=== PATIENT | female | born 1980 | race Caucasian/White ===

== ENCOUNTER → 2017-10-16 08:25 | Outpatient (CLI) | payer OTHER, SELFPAY ==
[2017-10-16 12:26] LABS: Absolute Lymphocyte Count 1.28 X10^3/ul (0.83-4.51); Absolute Neutrophil Count 2.3 X10^3/uL (2.0-7.7); Basophil# 0.01 X10^3/uL; Basophil% 0.2 % (0-1); Eosinophil# 0.09 X10^3/uL; Eosinophils% 2.2 % (0-5); Hematocrit 37.8 % (37-47); Hemoglobin 12.1 g/dl (12.0-15.0); Lymphocyte # 1.28 X10^3/ul (4.0); Lymphocyte % 31.2 % (19-41); Mean Corpuscular Volume 93.8 fL (81-99); Mean Platelet Vol. 11.2 fl (6.2-12.0); Monocyte# 0.39 X10^3/uL; Monocyte% 9.5 % (0-10); Neutrophil # 2.32 X10^3/uL (2.7-7.7); Neutrophil % 56.7 % (47-70); Platelet Count 261 K/mm3 (150-450); RBC Distribution Width CV 11.9 % (11.6-14.6); RBC Distribution Width SD 40.3 fl (35.1-43.9); Red Blood Count 4.03 M/mm3 (4.2-5.4); White Blood Count 4.1 K/mm3 (4.4-11.0)
[2017-10-16 12:32] LABS: POSITIVE COUNT NO; POSITIVE DIFFERENTIAL NO; POSITIVE MORPHOLOGY NO
[2017-10-16 12:46] LABS: AST(SGOT) 11 U/L (15-37); Alanine Aminotransfer ALT/SGPT 9 U/L (13-56); Albumin, Serum 3.5 g/dL (3.2-5.0); Alkaline Phosphatase 50 U/L (45-117); Anion Gap 6 (5-15); BUN 11 mg/dL (7-18); BUN/Creat Ratio 12.9 RATIO (10-20); Calcium,Total 8.1 mg/dL (8.5-10.1); Chloride 109 mmol/L (98-107); Cholesterol 221 mg/dL (200); Creatinine, Serum 0.86 mg/dL (0.55-1.02); EST Glomerular Filtration Rate 79 mL/min (>60); Est Glom Filt Rate - Afr Amer 95 mL/min (>60); Globulin 3.6 g/dL (2.2-4.2); Glucose 94 mg/dL (74-106); High Density Lipoprotein 56 mg/dL; Protein, Total 7.1 g/dL (6.4-8.2); Sodium Level 142 mmol/L (136-145); Thyroid Stim Hormone (TSH) 0.91 uIU/mL (0.358-3.74); Triglycerides 126 mg/dL; Very Low Density Lipoprotein 25 mg/dL (5-40)
== END ==
PROVIDERS: Family Provider Family Medicine; PCP Family Medicine; Visit Provider Family Medicine
DX: Z00.00 Encounter for general adult medical examination without abnormal findings (principal); R53.83 Other fatigue
CPT/HCPCS: 36415; 80053; 80061; 84443; 85025

== ENCOUNTER → 2018-08-06 16:10 | Outpatient (CLI) | payer OTHER, SELFPAY ==
--- NOTE | 2018-08-06 16:17 | MRI_ITS ---
STUDY: MRI LUMBAR SPINE WITHOUT CONTRAST REASON FOR EXAM: Female, 38 years old. Lower back pain TECHNIQUE: Standardized fat and water weighted pulse sequences were obtained in the sagittal and axial planes. COMPARISON: None FINDINGS: T12-L1: Normal endplates. Normal disc height, hydration and morphology. Normal bilateral facet joints. Normal central canal and bilateral lateral recesses. Normal bilateral intervertebral neural foramina. Normal lumbar lordosis. There is no substantial scoliosis. Normal conus medullaris that terminates at the L1-2: Normal endplates. Normal disc height, hydration and morphology. Normal bilateral facet joints. Normal central canal and bilateral lateral recesses. Normal bilateral intervertebral neural foramina. L2-3: Normal endplates. Normal disc height, hydration and morphology. Normal bilateral facet joints. Normal central canal and bilateral lateral recesses. Normal bilateral intervertebral neural foramina. L3-4: Normal endplates. Normal disc height, hydration and morphology. Normal bilateral facet joints. Normal central canal and bilateral lateral recesses. Normal bilateral intervertebral neural foramina. L4-5: Endplate spondylosis. Decreased disc height and small circumferential disc bulge. Degenerative changes of the bilateral facet joints. Mild narrowing of the central canal and bilateral intervertebral neural foramina. L5-S1: Endplate spondylosis. Right laminectomy Decreased disc height and small circumferential disc bulge. Degenerative changes of the bilateral facet joints. Mild narrowing of the bilateral intervertebral neural foramina. Normal visualized sacral ala. Normal visualized paraspinous soft tissue structures. MRI/Spine Lumbar (Routine) IMPRESSION: L4-5 and L5-S1 degenerative changes, as described above. Electronically Signed: Timo Reed MD at 5:20 EST Tel , Service support ,
== END ==
PROVIDERS: Family Provider Family Medicine; PCP Family Medicine; Referring Provider Anesthesiology Pain Medicine; Visit Provider Anesthesiology Pain Medicine
DX: M54.5 Low back pain (principal); M79.605 Pain in left leg
CPT/HCPCS: 72148

== ENCOUNTER → 2021-04-13 07:53 | Outpatient (CLI) | payer OTHER, SELFPAY ==
--- NOTE | 2021-04-13 08:05 | US_ITS ---
STUDY: ABDOMINAL ULTRASOUND - RIGHT UPPER QUADRANT REASON FOR VISIT: Female, 41 years old RUQ PAIN TECHNIQUE: Ultrasound evaluation of the right upper quadrant was performed with real-time and static hodges-scale imaging. TECHNICAL QUALITY: Adequate. COMPARISON: None. FINDINGS: Liver: The liver measures 13.2 cm. There is normal echogenicity of the liver. The bile ducts are within normal limits. There is hepatic color flow. The direction of portal flow is hepatopetal. There is no demonstrated mass lesion. Gallbladder: Normal distended gallbladder. The gallbladder wall measures 2.4 mm. There is a negative sonographic Dai''s sign. There is no pericholecystic fluid. There are no gallstones. Common Bile Duct (C.B.D.): The common bile duct measures 3.5 mm. Pancreas: Normal size of the head, body and tail of the pancreas. There is normal echogenicity of the pancreas. There is no demonstrated pancreatic mass or cyst. Right Kidney: Normal size of the right kidney. The right kidney measures 10.1 cm x 4.2 cm x 5.5 cm. Normal renal cortex. The right cortex measures 1.2 cm. There is no demonstrated renal mass or cyst. There is no right hydronephrosis. US/Abdomen Limited IMPRESSION: Normal right upper quadrant ultrasound examination. Electronically Signed: Alvarez Avendano MD at 14:54 EDT , Service support ,
== END ==
PROVIDERS: PCP Family Medicine; Referring Provider Family Medicine; Visit Provider Family Medicine
DX: R10.11 Right upper quadrant pain (principal)
CPT/HCPCS: 76705

== ENCOUNTER → 2021-04-30 10:00 | Outpatient (CLI) | payer OTHER, SELFPAY ==
--- NOTE | 2021-04-30 10:04 | NM_ITS ---
Nuclear medicine HIDA scan Indication: Gallbladder dysfunction COMPARISON STUDIES : NM - None. CR - Not available for review at this time. CT - Not available for review at this time. MR - Not available for review at this time. Ultrasound -- 04/13/2021 Technique: 5.5 mCi of technetium 99m labeled mebrofenin was injected intravenously followed by standard imaging. 1.4 mcg of CCK was injected intravenously for calculation of gallbladder ejection fraction. Findings: There is homogenous activity throughout the liver. Normal excretion of isotope into the proximal small bowel. Activity in the gallbladder is identified at 10 minutes. Gallbladder ejection fraction measures 74%. NM/Hepatobilliary Img w/Pharm Int IMPRESSION: Normal study. Normal gallbladder ejection fraction. Electronically Signed: Yahir Purdy MD ([place]) at 12:44 EDT , Service support ,
== END ==
PROVIDERS: PCP Family Medicine; Referring Provider Family Medicine; Visit Provider Family Medicine
DX: R10.11 Right upper quadrant pain (principal)
CPT/HCPCS: 78227; A9537; J2805

== ENCOUNTER → 2023-07-19 | Outpatient (CLI) | payer OTHER, SELFPAY | END | disposition home or self-care (01) | LOC: LABSPEC 13:36 | PROVIDERS: PCP Family Medicine; Visit Provider Family Medicine | DX: Z20.828 Contact with and (suspected) exposure to other viral communicable diseases (principal) | CPT/HCPCS: 87635; 87804 ==

== ENCOUNTER → 2024-04-04 | Outpatient (CLI) | payer BC, SELFPAY ==
[2024-04-04 12:29] LABS: Absolute Lymphocyte Count 1.22 X10^3/uL (0.83-4.51); Absolute Neutrophil Count 3.3 X10^3/uL (2.0-7.7); Basophil# 0.04 X10^3/uL; Basophil% 0.8 % (0-1); Eosinophil# 0.06 X10^3/uL; Eosinophils% 1.2 % (0-5); Hematocrit 46.1 % (37-47); Hemoglobin 14.8 g/dL (12.0-15.0); Lymphocyte # 1.22 X10^3/ul (0.83-4.51); Lymphocyte % 23.6 % (19-41); Mean Corp Hgb Conc 32.1 g/dL (32-36); Mean Corpuscular Hgb 30.3 pg (27.0-32.0); Mean Corpuscular Volume 94.5 fL (81-99); Monocyte# 0.51 X10^3/uL; Monocyte% 9.9 % (0-10); NRBC Flagged by Analyzer 0 % (0-5); Neutrophil # 3.33 X10^3/uL (2.7-7.7); Neutrophil % 64.3 % (47-70); Platelet Count 271 K/mm3 (150-450); RBC Distribution Width CV 11.9 % (11.6-14.6); RBC Distribution Width SD 41.3 fl (35.1-43.9); Red Blood Count 4.88 M/mm3 (4.2-5.4); White Blood Count 5.2 K/mm3 (4.4-11.0)
[2024-04-04 12:44] LABS: Vitamin B12 998 pg/mL (211-911); Vitamin D,25 Hydroxy 41.3 ng/mL
[2024-04-04 13:08] LABS: ALB/GLOB Ratio 1.1 RATIO (0.9-2.4); AST(SGOT) 15 U/L (15-37); Alanine Aminotransfer ALT/SGPT 13 U/L (13-56); Albumin, Serum 4.2 g/dL (3.2-5.0); Alkaline Phosphatase 52 U/L (45-117); Anion Gap 9 (5-15); BUN 11 mg/dL (7-18); Calcium,Total 9.6 mg/dL (8.5-10.1); Chloride 108 mmol/L (98-107); Cholesterol 285 mg/dL (200); EST Glomerular Filtration Rate 57 mL/min (>60); Est Glom Filt Rate - Afr Amer 69 mL/min (>60); Ferritin 57 ng/mL (8-252); Globulin 3.9 g/dL (2.2-4.2); Glucose 96 mg/dL (74-106); High Density Lipoprotein 58 mg/dL; Potassium 3.9 mmol/L (3.5-5.1); Protein, Total 8.1 g/dL (6.4-8.2); Sodium Level 139 mmol/L (136-145); T4 Free Direct 1.11 ng/dL (0.76-1.46); Thyroid Stim Hormone (TSH) 0.905 uIU/mL (0.358-3.740); Triglycerides 132 mg/dL; Very Low Density Lipoprotein 26 mg/dL (5-40)
== END | disposition home or self-care (01) ==
PROVIDERS: PCP Family Medicine; Referring Provider Family Medicine; Visit Provider Family Medicine
DX: Z00.00 Encounter for general adult medical examination without abnormal findings (principal); D64.9 Anemia, unspecified; R53.83 Other fatigue
CPT/HCPCS: 36415; 80053; 80061; 82306; 82607; 82728; 84439; 84443; 85025

== ENCOUNTER → 2024-04-25 | Outpatient (CLI) | payer BC, SELFPAY ==
--- NOTE | 2024-04-25 10:27 | BI_ITS ---
MAMMOGRAPHY - BILATERAL SCREENING REASON FOR EXAM: Female, 44 years old. Routine annual screening examination. PERTINENT HISTORY: Grandmother with breast cancer. TECHNIQUE: Digital bilateral breast claudia (3D mammographic acquisition) in the CC and MLO projections. 2-D mediolateral oblique (MLO) and craniocaudad (CC) views of both breasts were obtained. CAD: Full Field Digital Mammography with Computer Added Detection was performed. COMPARISON: Comparison is made with prior outside examination dated May 05, 2020. FINDINGS: Breast Composition: The breasts are extremely dense, which lowers the sensitivity of mammography. There are no dominant masses or suspicious calcifications. Stable small benign appearing bilateral axillary lymph nodes. No other significant abnormalities are identified. There has been no significant change since the prior study. BI/SCRN MAMM (CAD)W/CLAUDIA BILAT IMPRESSION: Stable bilateral screening mammogram. Yearly follow-up mammogram recommended. (A) ASSESSMENT CATEGORY: BIRADS Category 2: Benign. A letter regarding these results will be sent to the patient by the facility within 30 days. Approximately 10% of breast cancers are not detected by mammography. A normal mammogram should not delay biopsy of a clinically suspicious abnormality. [id number] Electronically Signed: Alvarez Avendano MD at 15:15 EDT ,
== END | disposition home or self-care (01) ==
LOC: OPBI 10:25
PROVIDERS: PCP Family Medicine; Referring Provider Family Medicine; Visit Provider Family Medicine
DX: Z12.31 Encounter for screening mammogram for malignant neoplasm of breast (principal)
CPT/HCPCS: 77063; 77067

== ENCOUNTER 2024-05-09 07:55 | Day surgery (SDC) | payer BC, SELFPAY ==
[2024-05-09] VITALS (8 sets, daily range): BP systolic 97–109; BP diastolic 78–98; PULSE 96–109; RESP 16; TEMP 36.1–37; O2SAT 99–100; BMI 24.3
--- NOTE | 2024-05-09 08:14 | PCM.HP.STD ---
[facility] - General General Date of Admission: 05/09/24 Date of Service: 05/09/24 Chief Complaint: Colon cancer screening HPI Narrative CLARIBEL WADDELL, is a 44 F who presents for colon cancer screening. She has a positive family history of cancers polyps in her mother. She is not have any abdominal pain. She denies any nausea vomiting or diarrhea. She does not take any medicines on a daily basis. Overall she is in very good health. [facility] Medical History (Updated 05/08/24 @ 14:24 by Saritha Sanz) Wears glasses Depression Anxiety Alcohol use Low iron High cholesterol Back pain Non-smoker Family history of colon cancer in mother Home Medications ?Medication ?Instructions ?Recorded ?Last Taken ?Type doxylamine succinate 25 mg tablet 25 mg PO QHS 04/11/24 Unknown History (Unisom (doxylamine)) Allergy/AdvReac Type Severity Reaction Status Date / Time No Known Allergies Allergy Verified 05/09/24 08:15 Family History (Updated 04/11/24 @ 11:11 by Belle Jacobsen) Mother Colon cancer, Onset Age: 66 Cancerous polyps removed Grandmother Breast cancer Surgical History (Updated 05/08/24 @ 14:24 by Saritha Sanz) History of discectomy Hx of hysterectomy Hx of tubal ligation S/p bilateral myringotomy with tube placement Social History (Updated 04/11/24 @ 11:11 by Belle Jacobsen) household members: spouse and children current occupational status: employed current occupation: [employer] Smoking Status: Never smoker alcohol intake: current alcohol intake frequency: holidays/special occasions only substance use type: does not use ROS Review of Systems ROS Unobtainable: other Constitutional Constitutional: Denies fatigue, fever(s), poor appetite, weight gain or weight loss ENT HEENT: Denies mouth lesions Cardiovascular Cardiovascular: Denies abdominal bloating, abdominal edema or abdominal pain Respiratory/Chest Respiratory/Chest: Denies change in mental status, change in phlegm color, chest congestion or chest tightness Gastrointestinal Gastrointestinal: Denies belching, bloating, change in bowel habits, change in stool character, chewing difficulty, coffee ground emesis, constipation, cramping, diarrhea, dyspepsia, dysphagia, early satiety, excessive flatus, fecal incontinence, heartburn, hematemesis, hematochezia, hemorrhoids, loose stools, melena, nausea, odynophagia, rectal bleeding, tenesmus, vomiting or weight changes Genitourinary Genitourinary: Denies abdominal discomfort, burning urination or itching Musculoskeletal Musculoskeletal: Reports as per HPI; Denies muscle weakness or myalgias Integumentary Integumentary: Denies jaundice Neurologic Neurologic: Denies lack of coordination or weakness Psychiatric Psychiatric: Denies confusion, depression, memory loss, mood swings, paranoia or suicidal ideation Endocrine Endocrinology: Denies systems reviewed and no addt'l complaints, except as documented Hematologic/Lymphatic Hematologic/Lymphatic: Denies anemia, easy bleeding, easy bruising or lymphadenopathy Allergic/Immunologic Allergic/Immunologic: Denies systems reviewed and no addt'l complaints, except as documented Assessment & Plan Assessment/Plan (1) Encounter for screening for malignant neoplasm of colon: PLAN: She was explained alternatives, risk, benefits include not withstanding bleeding, infection, sepsis, perforation, need for emergent surgery and . She will have an ASA of 3.
--- NOTE | 2024-05-09 08:28 | PRE.ANES_ITS ---
ASA Classification* ASA Classification ASA Classification: 2 Assessment & Plan Anesthesia* Anesthesia Assessment Anesthesia Assessment: Discussed sedation and/or anesthesia options, risks, benefits, and alternatives with patient/parents/legal guardian/POA. Questions invited. The patient/parents/legal guardian/POA seems to understand and agrees to proceed with anesthesia plan. Reviewed the physical assessment, medical history, allergy history and patient home medications list prior to surgery/procedure/anesthetic and documented any changes. Performed airway and anesthesia risk assessments. Anesthesia Type Anesthesia Type: MAC (see written pre anesthesia record for full assessment) Anesthesia Focused Assessment* Temperature: 97 F Pulse Rate: 102 Blood Pressure: 109/98 Respiratory Rate: 16 Pulse Ox: 99 Airway Assessment Mouth opens: >3 cm Mallampati Score: II Focused Labs Anesthesia Preop lab: CBC WBC 5.2 K/mm3 (4.4-11.0) 04/04/24 09:01 RBC 4.88 M/mm3 (4.2-5.4) 04/04/24 09:01 Hgb 14.8 g/dL (12.0-15.0) 04/04/24 09:01 Hct 46.1 % (37-47) 04/04/24 09:01 Plt Count 271 K/mm3 (150-450) 04/04/24 09:01 CHEMISTRY Potassium 3.9 mmol/L (3.5-5.1) 04/04/24 09:01 Sodium 139 mmol/L (136-145) 04/04/24 09:01 BUN 11 mg/dL (7-18) 04/04/24 09:01 Creatinine 1.10 mg/dL (0.55-1.02) H 04/04/24 09:01 Glucose 96 mg/dL (74-106) 04/04/24 09:01 TSH 0.905 uIU/mL (0.358-3.740) 04/04/24 09:01 COAG PT 12.0 SECONDS (11.7-14.9) 10/26/15 13:50 Urine Test Negative Negative 04/23/15 10:45 Pre-Assessment Diagnosis/Proposed Procedure Planned Operative Procedure(s): CSCOPE OA Anesthesia History Anesthesia History - e commerce developer: Anesthesia History - e commerce developer Hx Hospitalization No 05/08/24 14:20 Any Problems With Anesthesia No 05/08/24 14:20 Cholinesterase deficiency No 05/08/24 14:20 You/Your Family Experience No 05/08/24 14:20 fever (hyperthermia) with Relationship Recent Exposure to Contagious No 05/09/24 08:16 Disease Does patient have nerve No 05/08/24 14:20 stimulator Patient instructed to have device shut off --Does patient have Pacemaker No 05/09/24 08:16 or ICD? When Was Last Pacemaker Check QUESTION #4 FULL TEXT: You/Your Family Experience fever (hyperthermia) with Anesthesia Last Oral Intake Last Oral intake: Last Oral Intake NPO since 05:00 05/09/24 08:16 Meds taken in AM with sips of water? Meds patient instructed to take am of surgery PONV PONV - e commerce developer: PONV - e commerce developer Female Yes 05/08/24 14:20 HX of Motion Sickness No 05/08/24 14:20 HX of N/V After Surgery No 05/08/24 14:20 Non-Smoker Yes 05/08/24 14:20 Duration of Surgery greater No 05/08/24 14:20 than 60 minutes Number of Risk Factors 2 05/08/24 14:20 PONV Score Moderate Risk 05/08/24 14:20 Height & Weight Height & Weight: Anesthesia: Height & Weight Height 5 ft 5 in 05/09/24 08:16 Weight: 66.224 kg 05/09/24 08:16 Body Mass Index (BMI) 24.3 05/09/24 08:16 Respiratory Assessment Respiratory Assessment - e commerce developer: Respiratory Tract Infection Hx - e commerce developer Hx Respiratory Tract Infection No 05/08/24 14:20 STOP Sleep Apnea STOP Sleep Apnea - e commerce developer: STOP Sleep Apnea - e commerce developer Hx Hypertension No 05/08/24 14:20 Hx Sleep Apnea No 05/08/24 14:20 CPAP No 04/23/15 13:48 BIPAP No 04/16/15 10:06 Do you snore loudly (louder No 05/08/24 14:20 than talking or can be heard Do you often feel tired/ No 05/08/24 14:20 fatigued/ sleepy during daytime? Has anyone observed you stop No 05/08/24 14:20 breathing during sleep? STOP Results Negative 05/08/24 14:20 QUESTION #5 FULL TEXT : Do you snore loudly (louder than talking or can be heard through closed doors)? 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 Specify any problems Hx of Preganancy in last 3 No 05/08/24 14:20 Months Nurse Filling Out Transfusion DSCHRIBER 05/08/24 14:20 & Questions: Date: 05/08/24 05/08/24 14:20 Time: 14:21 05/08/24 14:20 Patient unable to answer at this time (ie. confused, unrespo /Reproduction History /Reproductive History - e commerce developer: /Reproductive Hx- e commerce developer Hx Now No 05/08/24 14:20 Gestational Age (in weeks): EDC: Hx Hx Para Hx Section SAB No 05/08/24 14:20 PFSH Medical History Wears glasses Depression Anxiety Alcohol use Low iron High cholesterol Back pain Non-smoker Family history of colon cancer in mother Home Medications ?Medication ?Instructions ?Recorded ?Last Taken ?Type doxylamine succinate 25 mg tablet 25 mg PO QHS 04/11/24 Unknown History (Unisom (doxylamine)) Allergy/AdvReac Type Severity Reaction Status Date / Time No Known Allergies Allergy Verified 05/09/24 08:15 Family History Mother Colon cancer, Onset Age: 66 Cancerous polyps removed Grandmother Breast cancer Surgical History History of discectomy Hx of hysterectomy Hx of tubal ligation S/p bilateral myringotomy with tube placement Social History household members: spouse and children current occupational status: employed current occupation: [employer] Smoking Status: Never smoker alcohol intake: current alcohol intake frequency: holidays/special occasions only substance use type: does not use Review of Systems (Anesthesia) ROS Narrative System reviewed and no additional complaints, except as documented.
--- NOTE | 2024-05-09 09:00 | COLBX_PTH ---
PATIENT: CLARIBEL WADDELL LOC: EN U#:[id number] AGE/SX: 44/F ROOM: RE05/09/[address]: Dr. Roberto Lutz DO : 1980 BED: DIS: 05/09/2024 SPEC #: [id number] RECD: 05/09/24 13:24 STATUS: JON LISA #: [id number] DANIELE: 05/09/24 09:[address]: Roberto Lutz DEPT: SURGICAL PATHOLOGY RECD BY: Althea Medley ENTERED: 05/09/24 13:53 SP TYPE: COLON BX OTHR DR: Dr. Ryland Storm DO Tissues: Cecum, NOS Procedures: Surgery Specimen Level IV HEADER OPERATION: Colonoscopy with biopsy PRE-OP DIAGNOSIS: Encounter for screening for malignant neoplasm of colon TISSUE SUBMITTED: Cecum biopsy MICROSCOPIC DIAGNOSIS Cecum, biopsy: Fragments of colonic mucosa, no pathologic diagnosis. 05/10/2024 MICROSCOPIC DESCRIPTION Slides are reviewed. GROSS DESCRIPTION Received in fixative is one container labeled with the patient's name and designated Cecum biopsy. The specimen consists of multiple irregular fragments of light jimenez soft tissue that in aggregate measure 1.0 x 0.3 x 0.1 cm. The specimen is totally submitted in one cassette. 05/09/2024 TC:4 CPT:66953
--- NOTE | 2024-05-09 09:31 | PCM.POST.ANE ---
Anesthesia: Postop Eval I Current Vital Signs Temperature: 97 F Pulse Rate: 109 Blood Pressure: 105/90 Respiratory Rate: 16 Pulse Ox: 100 Oxygen Delivery Method: Room Air Assessment Airway patent: Yes Spontaneous unlabored respirations: Yes Mental status: Asleep nausea: No Vomiting: No Anesthesia Complication: No Fluid Hydration Crystalloid volume administer (ml): 60 Total IV fluid infused: 60 Progress Note Anesthesia document: Postop Eval 1 completed: Yes
--- NOTE | 2024-05-09 10:11 | PCM.POSTANE2 ---
Anesthesia Postop Eval I Sum Postop Eval Completion status Anesthesia document: Postop Eval 1 completed: Yes Anesthesia Postop Eval I Summary Anesthesia Postop Eval I Summary: Anesthesia Postop Eval I: Assessment Summary Airway patent Yes 05/09/24 09:32 [email or web address] Spontaneous unlabored Yes 05/09/24 09:32 [email or web address] respirations Mental status Asleep 05/09/24 09:32 [email or web address] nausea No 05/09/24 09:32 [email or web address] Vomiting No 05/09/24 09:32 [email or web address] Anesthesia Postop Eval I: Fluid Summary Crystalloid volume administer 60 05/09/24 09:32 [email or web address] (ml) Colloids volume administered ( ml) Blood Product volume administered (ml) Total IV fluid infused 60 05/09/24 09:32 [email or web address] Anesthesia Postop Eval I: Summary Notes Anesthesia Complication No 05/09/24 09:32 [email or web address] Anesthesia Complication Comment: Post-operative progress note Anesthesia: Postop Eval II Evaluation Mental status: Awake Pain Level: 0 nausea: No Vomiting: No
--- NOTE | 2024-05-13 15:26 | OP.COLON_ITS ---
Patient Name: Daniella Cardona Procedure Date: 05/09/2024 8:58 AM Date of : 1980 Age: 44 Procedure: Colonoscopy Indications: Screening for colorectal malignant neoplasm Providers: Roberto Lutz DO Medicines: Monitored Anesthesia Care Patient Profile: This is a 44 year old female. Refer to note in patient chart for documentation of history and physical. Last Colonoscopy: none. The patient's first colonoscopy is today. Complications: No immediate complications. Procedure: Pre-Anesthesia Assessment: - Prior to the procedure, a History and Physical was performed, and patient medications and allergies were reviewed. The patient is competent. The risks and benefits of the procedure and the sedation options and risks were discussed with the patient. All questions were answered and informed consent was obtained. Patient identification and proposed procedure were verified by the physician in the pre-procedure area. Mental Status Examination: alert and oriented. Airway Examination: normal oropharyngeal airway and neck mobility. Respiratory Examination: clear to auscultation. CV Examination: normal. Prophylactic Antibiotics: The patient does not require prophylactic antibiotics. Prior Anticoagulants: The patient has taken no anticoagulant or antiplatelet agents. ASA Grade Assessment: II - A patient with mild systemic disease. After reviewing the risks and benefits, the patient was deemed in satisfactory condition to undergo the procedure. The anesthesia plan was to use monitored anesthesia care (MAC). Immediately prior to administration of medications, the patient was re-assessed for adequacy to receive sedatives. The heart rate, respiratory rate, oxygen saturations, blood pressure, adequacy of pulmonary ventilation, and response to care were monitored throughout the procedure. The physical status of the patient was re-assessed after the procedure. After I obtained informed consent, the scope was passed under direct vision. Throughout the procedure, the patient's blood pressure, pulse, and oxygen saturations were monitored continuously. The pediatric colonoscope was introduced through the anus and advanced to the terminal ileum. The colonoscopy was performed without difficulty. The patient tolerated the procedure well. The quality of the bowel preparation was adequate. The terminal ileum, ileocecal valve, appendiceal orifice, and rectum were photographed. Scope In: 9:12:33 AM Scope Withdrawal Time 0 hours 8 minutes 52 seconds Scope Out: 9:25:38 AM Total Procedure Duration Time 0 hours 13 minutes 5 seconds Findings: The perianal and digital rectal examinations were normal. An area of moderately congested mucosa was found in the cecum. Biopsies were taken with a cold forceps for histology. Verification of patient identification for the specimen was done. Estimated blood loss was minimal. The exam was otherwise without abnormality on direct and retroflexion views. The terminal ileum appeared normal. Impression: - Congested mucosa in the cecum. Biopsied. - The examination was otherwise normal on direct and retroflexion views. - The examined portion of the ileum was normal. Recommendation: - Discharge patient to home. - Resume previous diet. - Continue present medications. - Await pathology results. - Repeat colonoscopy in 10 years for screening purposes. Procedure Code(s): --- Professional --- 18203, Colonoscopy, flexible; with biopsy, single or multiple CPT copyright 2021 [employer]. All rights reserved. The codes documented in this report are preliminary and upon crystal lapper review may be revised to meet current compliance requirements. Roberto Lutz DO 05/09/2024 9:29:33 AM This report has been signed electronically. Number of Addenda: 0 Note Initiated On: 05/09/2024 8:58 AM
--- NOTE | 2024-05-13 15:26 | OP.CCLET_ITS ---
05/09/2024 Ryland Storm [address] [place] [address] Re : Colonoscopy procedure for Daniella Brendan Dear Dr. Storm This procedure was performed on April. My impressions and recommendations are as follows: Impressions : - Congested mucosa in the cecum. Biopsied. - The examination was otherwise normal on direct and retroflexion views. - The examined portion of the ileum was normal. Recommendations : - Discharge patient to home. - Resume previous diet. - Continue present medications. - Await pathology results. - Repeat colonoscopy in 10 years for screening purposes. My findings are described in the full procedure note, which is enclosed. If I can be of further assistance, please feel free to contact me at . Sincerely, Roberto Lutz, 05/09/2024 9:29:33 AM This report has been signed electronically.
== END 2024-05-09 10:23 | disposition home or self-care (01) ==
LOC: EN 07:57 → AC 07:58
PROVIDERS: PCP Family Medicine; Referring Provider Family Medicine; Visit Provider Internal Medicine Gastroenterology
PROC: 0DJD8ZZ Inspection of Lower Intestinal Tract, Via Natural or Artificial Opening Endoscopic (ICD-10-PCS; CPT 45378; principal; 2024-05-09 08:55)
DX: Z12.11 Encounter for screening for malignant neoplasm of colon (principal); K63.89 Other specified diseases of intestine; Z80.0 Family history of malignant neoplasm of digestive organs
CPT/HCPCS: 45380; 88305; A4216; J2405

== ENCOUNTER → 2025-04-08 | Outpatient (CLI) | payer BC, SELFPAY ==
[2025-04-08 12:37] LABS: Hematocrit 39.5 % (37-47); Hemoglobin 13.1 g/dL (12.0-15.0); Immature Granulocytes Count 0.020 X10^3/uL (0.0-0.0); Mean Corp Hgb Conc 33.2 g/dL (32-36); Mean Corpuscular Volume 95.0 fL (81-99); Mean Platelet Vol. 10.6 fl (6.2-12.0); NRBC Flagged by Analyzer 0 % (0-5); Platelet Count 289 K/mm3 (150-450); RBC Distribution Width CV 12.8 % (11.6-14.6); RBC Distribution Width SD 44.8 fl (35.1-43.9); Red Blood Count 4.16 M/mm3 (4.2-5.4); White Blood Count 6.1 K/mm3 (4.4-11.0)
[2025-04-08 13:11] LABS: Cholesterol 236 mg/dL (<=200); Low Density Lipoprotein Calc. 122 mg/dL; Triglycerides 176 mg/dL; Very Low Density Lipoprotein 35 mg/dL (5-40); cholesterol:hdl ratio screen 3.01
[2025-04-08 13:13] LABS: AST(SGOT) 19 U/L (<=31); Alanine Aminotransfer ALT/SGPT < 5 U/L (<=34); Albumin, Serum 4.3 g/dL (3.5-5.0); Alkaline Phosphatase 50 U/L (35-104); Anion Gap 12 (5-15); BUN 9 mg/dL (4-19); BUN/Creat Ratio 10.3 RATIO (10-20); Calcium,Total 9.4 mg/dL (7.6-11.0); Carbon Dioxide 25.8 mmol/L (21.0-32.0); Chloride 101 mmol/L (98-108); Globulin 2.7 g/dL (2.2-4.2); Glucose 104 mg/dL (70-99); Potassium 4.4 mmol/L (3.3-5.1)
[2025-04-09 04:07] LABS: PROGESTERONE 10.9 ng/mL (.)
== END | disposition home or self-care (01) ==
LOC: BFHLAB 09:06
PROVIDERS: PCP Family Medicine; Visit Provider Family Medicine
DX: Z00.00 Encounter for general adult medical examination without abnormal findings (principal); R61 Generalized hyperhidrosis
CPT/HCPCS: 36415; 80053; 80061; 82670; 84144; 84439; 84443; 85025

== ENCOUNTER 2025-04-25 04:06 | Observation (INO) | payer BC, SELFPAY ==
[2025-04-25] VITALS (16 sets, daily range): BP systolic 110–153; BP diastolic 62–96; PULSE 65–122; RESP 14–18; TEMP 36.4–36.7; O2SAT 90–100; BMI 25.9
--- OUTSIDE RECORDS SUMMARY | 2025-04-25 04:29 | XMS RPT_ITS | CCD ---
Author Organization [facility] Care Team Providers Care Mathematics Instructor Name Role Phone Vijay Queen DO Unavailable Ryland Storm Primary Care Unavailable Ryland Storm Attending Unavailable Ryland Storm Referring Unavailable Ryland Storm Primary Care Unavailable Ryland Storm Attending Unavailable Ryland Storm Referring Unavailable Ryland Storm Primary Care Unavailable Ryland Storm Attending Unavailable Ryland Storm Primary Care Unavailable FriendRoberto Attending Unavailable Ryland Storm Referring Unavailable Ryland Storm Primary Care Unavailable FriendRoberto Consulting Unavailable FriendRoberto Attending Unavailable Ryland Storm Referring Unavailable Medications Completed/Discontinued Medications Medication Drug Class(es) Dates Sig (Normalized) Sig (Original) gabapentin 300 mg oral capsule (1 source) Anti-epileptic Agent Start: 09-05-2018 GABAPENTIN 300 MG CAPS 1 capsule 3 times daily GABAPENTIN [id number] Jennifer Hancock LPN terbinafine 250 mg oral tablet (1 source) Allylamine Antifungal Start: 09-05-2018 TERBINAFINE HCL 250 MG TABS 1 tablet daily TERBINAFINE HCL [id number] Jennifer Hancock LPN Problems Active Problems Problem Classification Problem Date Documented Da te Episodic/Chronic Other screening for suspected conditions (not mental disorders or infectious disease) (4 sources) Encounter for other screening for malignant neoplasm of breast; Translations: [Encounter for screening for malignant neoplasm of colon] Onset: 05-14-2024 Episodic Spondylosis; intervertebral disc disorders; other back problems (2 sources) Low back pain; Translations: [Radiculopathy, lumbar region] Onset: 09-06-2018 09-06-2018 Episodic Past or Other Problems Problem Classification Problem Date Documented Da te Episodic/Chronic Unclassified (1 source) Problem Results Test Name Value Interpretation Reference Range Facility PROGESTERONE 4317on 04-09-20 25 PROGESTERONE 10.9 ng/mL Normal . [facility] Comment on above: Order Comment: N Result Comment: Foll icular phase 0.1 - 0.9 Luteal phase 1.8 - 23.9 Ovulation phase 0.1 - 12.0 First trimester 11.0 - 44.3 Second trimester 25.4 - 83.3 Third trimester 58.7 - 214.0 Postmenopausal 0.0 - 0.1 Performed at: [address] [id number] Accounting Machine Servicer: Randall Walters PhD, Phone: [phone] Performed By: #### L 506.0400, L801.2600, L100.0100, L500.4100, L3300.1750, L500.4050, L501.9520 ####[facility] [address] [place], [place], [phone](005) CBC W/Diff, Automatedon 03-24 Absolute Lymph 1.79 X10 3/uL Normal 0.83-4.51 [facility] Comment on above: Performed By: #### L 506.0400, L801.2600, L100.0100, L500.4100, L3300.1750, L500.4050, L501.9520 #### [facility] [address] [place], [place], [phone] ([address] Absolute Neut 3.5 X10 3/uL Normal 2.0-7.7 [facility] Comment on above: Performed By: #### L 506.0400, L801.2600, L100.0100, L500.4100, L3300.1750, L500.4050, L501.9520 #### [facility] [address] [place], [address] Basophils/100 WBC (Bld) 0.8 % Normal 0-1 [facility] Comment on above: Performed By: #### L 506.0400, L801.2600, L100.0100, L500.4100, L3300.1750, L500.4050, L501.9520 #### [facility] [address] [place], [address] Eosinophils/100 WBC (Bld) 1.5 % Normal 0-5 [facility] Comment on above: Performed By: #### L 506.0400, L801.2600, L100.0100, L500.4100, L3300.1750, L500.4050, L501.9520 #### [facility] [address] [place], [address] Erythrocyte distribution width (RBC) [Ratio] 12.8 % Normal 11.6-14.6 [facility] Comment on above: Performed By: #### L 506.0400, L801.2600, L100.0100, L500.4100, L3300.1750, L500.4050, L501.9520 #### [facility] [address] [place], [address] Hematocrit (Bld) [Volume fraction] 39.5 % Normal 37-47 [facility] Comment on above: Performed By: #### L 506.0400, L801.2600, L100.0100, L500.4100, L3300.1750, L500.4050, L501.9520 #### [facility] [address] [place], [address] Hemoglobin (Bld) [Mass/Vol] 13.1 g/dL Normal 12.0-15.0 [facility] Comment on above: Performed By: #### L 506.0400, L801.2600, L100.0100, L500.4100, L3300.1750, L500.4050, L501.9520 #### [facility] [address] [place], [address] IG% 0.300 Normal 0.0-0.9 [facility] Comment on above: Result Comment: IG% - Immature Granulocytes (promyelocytes, myelocytes and metamyelocytes) > 1% indicates that a LEFT SHIFT is Present. Performed By: #### L 506.0400, L801.2600, L100.0100, L500.4100, L3300.1750, L500.4050, L501.9520 #### [facility] [address] [place], [address] Lymphocytes/100 WBC (Bld) 29.6 % Normal 19-41 [facility] Comment on above: Performed By: #### L 506.0400, L801.2600, L100.0100, L500.4100, L3300.1750, L500.4050, L501.9520 #### [facility] [address] [place], [address] MCH (RBC) [Entitic mass] 31.5 pg Normal 27.0-32.0 [facility] Comment on above: Performed By: #### L 506.0400, L801.2600, L100.0100, L500.4100, L3300.1750, L500.4050, L501.9520 #### [facility] [address] [place], [address] MCHC (RBC) [Mass/Vol] 33.2 g/dL Normal 32-36 [facility] Comment on above: Performed By: #### L 506.0400, L801.2600, L100.0100, L500.4100, L3300.1750, L500.4050, L501.9520 #### [facility] [address] [place], [address] MCV (RBC) [Entitic vol] 95.0 fL Normal 81-99 [facility] Comment on above: Performed By: #### L 506.0400, L801.2600, L100.0100, L500.4100, L3300.1750, L500.4050, L501.9520 #### [facility] [address] [place], [address] Monocytes/100 WBC (Bld) 10.1 % High 0-10 [facility] Comment on above: Performed By: #### L 506.0400, L801.2600, L100.0100, L500.4100, L3300.1750, L500.4050, L501.9520 #### [facility] [address] [place], [address] Neutrophils/100 WBC (Bld) 57.7 % Normal 47-70 [facility] Comment on above: Performed By: #### L 506.0400, L801.2600, L100.0100, L500.4100, L3300.1750, L500.4050, L501.9520 #### [facility] [address] [place], [address] Nucleated RBC (Bld) [#/Vol] 0 10*3/uL Normal 0-5 [facility] Comment on above: Performed By: #### L 506.0400, L801.2600, L100.0100, L500.4100, L3300.1750, L500.4050, L501.9520 #### [facility] [address] [place], [address] Platelet mean volume (Bld) [Entitic vol] 10.6 fL Normal 6.2-12.0 [facility] Comment on above: Performed By: #### L 506.0400, L801.2600, L100.0100, L500.4100, L3300.1750, L500.4050, L501.9520 #### [facility] [address] [place], [address] Platelets (Bld) [#/Vol] 289 10*3/uL Normal 150-450 [facility] Comment on above: Performed By: #### L 506.0400, L801.2600, L100.0100, L500.4100, L3300.1750, L500.4050, L501.9520 #### [facility] [address] [place], [address] RBC (Bld) [#/Vol] 4.16 10*6/uL Low 4.2-5.4 [facility] Comment on above: Performed By: #### L 506.0400, L801.2600, L100.0100, L500.4100, L3300.1750, L500.4050, L501.9520 #### [facility] [address] [place], [address] RDW SD 44.8 fl High 35.1-43.9 [facility] Comment on above: Performed By: #### L 506.0400, L801.2600, L100.0100, L500.4100, L3300.1750, L500.4050, L501.9520 #### [facility] [address] [place], [address] WBC (Bld) [#/Vol] 6.1 10*3/uL Normal 4.4-11.0 [facility] Comment on above: Performed By: #### L 506.0400, L801.2600, L100.0100, L500.4100, L3300.1750, L500.4050, L501.9520 #### [facility] [address] [place], [address] Comprehensive Metabolic Prof [facility] 04-08-2025 Albumin [Mass/Vol] 4.3 g/dL Normal 3.5-5.0 [facility] Comment on above: Performed By: #### L 506.0400, L801.2600, L100.0100, L500.4100, L3300.1750, L500.4050, L501.9520 #### [facility] [address] [place], [address] Albumin/Globulin [Mass ratio] 1.6 {ratio} Normal 0.9-2.4 [facility] Comment on above: Performed By: #### L 506.0400, L801.2600, L100.0100, L500.4100, L3300.1750, L500.4050, L501.9520 #### [facility] [address] [place], [address] ALK PHOS 50 U/L Normal 35-104 [facility] Comment on above: Performed By: #### L 506.0400, L801.2600, L100.0100, L500.4100, L3300.1750, L500.4050, L501.9520 #### [facility] [address] [place], [address] ALT [Catalytic activity/Vol] U/L Normal <=34 [facility] Comment on above: Performed By: #### L 506.0400, L801.2600, L100.0100, L500.4100, L3300.1750, L500.4050, L501.9520 #### [facility] [address] [place], [address] AST [Catalytic activity/Vol] 19 U/L Normal <=31 [facility] Comment on above: Performed By: #### L 506.0400, L801.2600, L100.0100, L500.4100, L3300.1750, L500.4050, L501.9520 #### [facility] [address] [place], [address] Bilirubin [Mass/Vol] 0.25 mg/dL Normal 0.00-1.30 [facility] Comment on above: Performed By: #### L 506.0400, L801.2600, L100.0100, L500.4100, L3300.1750, L500.4050, L501.9520 #### [facility] [address] [place], [address] BUN/CRE 10.3 RATIO Normal 10-20 [facility] Comment on above: Performed By: #### L 506.0400, L801.2600, L100.0100, L500.4100, L3300.1750, L500.4050, L501.9520 #### [facility] [address] [place], [address] Calcium [Mass/Vol] 9.4 mg/dL Normal 7.6-11.0 [facility] Comment on above: Performed By: #### L 506.0400, L801.2600, L100.0100, L500.4100, L3300.1750, L500.4050, L501.9520 #### [facility] [address] [place], [address] Chloride [Moles/Vol] 101 mmol/L Normal 98-108 [facility] Comment on above: Performed By: #### L 506.0400, L801.2600, L100.0100, L500.4100, L3300.1750, L500.4050, L501.9520 #### [facility] [address] [place], [address] CO2 [Moles/Vol] 25.8 mmol/L Normal 21.0-32.0 [facility] Comment on above: Performed By: #### L 506.0400, L801.2600, L100.0100, L500.4100, L3300.1750, L500.4050, L501.9520 #### [facility] [address] [place], [address] Creatinine [Mass/Vol] 0.89 mg/dL Normal 0.70-1.20 [facility] Comment on above: Performed By: #### L 506.0400, L801.2600, L100.0100, L500.4100, L3300.1750, L500.4050, L501.9520 #### [facility] [address] [place], [address] GAP 12 Normal 5-15 [facility] Comment on above: Performed By: #### L 506.0400, L801.2600, L100.0100, L500.4100, L3300.1750, L500.4050, L501.9520 #### [facility] [address] [place], [address] GFR/1.73 sq M.predicted among non-blacks MDRD (S/P/Bld) [Vol rate/Area] 81 mL/min/{1.73_m2} Normal >60 [facility] Comment on above: Result Comment: mL/m in/1.73m2 CKD-EPI Creatinine Equation (2020) Performed By: #### L 506.0400, L801.2600, L100.0100, L500.4100, L3300.1750, L500.4050, L501.9520 #### [facility] [address] [place], [address] Globulin (S) [Mass/Vol] 2.7 g/dL Normal 2.2-4.2 [facility] Comment on above: Performed By: #### L 506.0400, L801.2600, L100.0100, L500.4100, L3300.1750, L500.4050, L501.9520 #### [facility] [address] [place], [address] Glucose [Mass/Vol] 104 mg/dL High 70-99 [facility] Comment on above: Performed By: #### L 506.0400, L801.2600, L100.0100, L500.4100, L3300.1750, L500.4050, L501.9520 #### [facility] [address] [place], [address] Potassium [Moles/Vol] 4.4 mmol/L Normal 3.3-5.1 [facility] Comment on above: Performed By: #### L 506.0400, L801.2600, L100.0100, L500.4100, L3300.1750, L500.4050, L501.9520 #### [facility] [address] [place], [address] Sodium [Moles/Vol] 139 mmol/L Normal 133-145 [facility] Comment on above: Performed By: #### L 506.0400, L801.2600, L100.0100, L500.4100, L3300.1750, L500.4050, L501.9520 #### [facility] [address] [place], [address] T PROT 7.0 g/dL Normal 5.9-8.4 [facility] Comment on above: Performed By: #### L 506.0400, L801.2600, L100.0100, L500.4100, L3300.1750, L500.4050, L501.9520 #### [facility] [address] [place], [address] Urea nitrogen [Mass/Vol] 9 mg/dL Normal 4-19 [facility] Comment on above: Performed By: #### L 506.0400, L801.2600, L100.0100, L500.4100, L3300.1750, L500.4050, L501.9520 #### [facility] [address] [place], [address] Estradiolon 04-08-2025 ESTRADIOL 146.0 pg/mL Normal [facility] Comment on above: Result Comment: FEMA LES ADULT FEMALE: Premenopausal: 15-350 pg/mL(E2 levels vary widely through the menstrual cycle) Postmenopausal: <10 pg/mL KYLER STAGES MEAN AGE REFERENCE RANGES Stage I(>14 days and prepubertal) 7.1 years Undetectable-20 pg/mLL Stage II 10.5 years Undetectable-24 pg/mL Stage III 11.6 years Undetectable-60 pg/mL Stage IV 12.3 years 15-85 pg/mL Stage V 14.5 years 15-350 pg/mL Puberty onset (transition from Kyler stage I to Kyler stage II) occurs for girls at a median age of 10.5 (/- 2) years. There is evidence that it may occur up to 1 year earlier in obese girls and in girls. Progression through Kyler stages is variable. Kyler stage V (adult) should be reached by age 18. Performed By: #### L 506.0400, L801.2600, L100.0100, L500.4100, L3300.1750, L500.4050, L501.9520 #### [facility] [address] [facility] [place], [place], [id number] Lipid Profileon 04-08-2025 CHOL:HDL 3.01 Normal [facility] Comment on above: Performed By: #### L 506.0400, L801.2600, L100.0100, L500.4100, L3300.1750, L500.4050, L501.9520 #### [facility] [address] [facility] [place], [place], [id number] Cholesterol [Mass/Vol] 236 mg/dL High <=200 [facility] Comment on above: Result Comment: Chol esterol level, Desirable <200 mg/dL Borderline high cholesterol 200-239 mg/dL High cholesterol >=240 mg/dL Recommendations of the NCEP Adult Treatment Panel for the following risk-cutoff thresholds for the [place] population. Performed By: #### L 506.0400, L801.2600, L100.0100, L500.4100, L3300.1750, L500.4050, L501.9520 #### [facility] [address] [place], [address] Cholesterol in HDL [Mass/Vol] 79 mg/dL Normal [facility] Comment on above: Result Comment: Jennifer onal Cholesterol Education Program (NCEP) guidelines: <40 mg/dL: Low HDL-cholesterol (major risk factor for CHD) >= 60 mg/dL: High HDL-cholesterol (negative risk factor for CHD) HDL-cholesterol is affected by a number of factors, e.g. smoking, exercise, hormones, sex and age. Performed By: #### L 506.0400, L801.2600, L100.0100, L500.4100, L3300.1750, L500.4050, L501.9520 #### [facility] [address] [place], [address] Cholesterol in LDL [Mass/Vol] 122 mg/dL Normal [facility] Comment on above: Result Comment: Bord nwpqbu=694-494 mg/dL Higher Cmpu=704 mg/dL or greater Friedwald Equation for LDL-C Performed By: #### L 506.0400, L801.2600, L100.0100, L500.4100, L3300.1750, L500.4050, L501.9520 #### [facility] [address] [place], [address] Cholesterol in VLDL [Mass/Vol] 35 mg/dL Normal 5-40 [facility] Comment on above: Performed By: #### L 506.0400, L801.2600, L100.0100, L500.4100, L3300.1750, L500.4050, L501.9520 #### [facility] [address] [place], [address] Triglyceride [Mass/Vol] 176 mg/dL Normal [facility] Comment on above: Result Comment: The drugs N-Acetylcysteine and Metamizole may falsely depress this assay. Normal range: <150 mg/dL Borderline High: 150-199 mg/dL High: 200-499 mg/dL Very High: >500 mg/dL Performed By: #### L 506.0400, L801.2600, L100.0100, L500.4100, L3300.1750, L500.4050, L501.9520 #### [facility] [address] [place], [address] T4 Free Directon 04-08-2025 T4 FREE DIRECT 1.00 ng/dL Normal 0.76-1.46 [facility] Comment on above: Order Comment: N Performed By: #### L 506.0400, L801.2600, L100.0100, L500.4100, L3300.1750, L500.4050, L501.9520 #### [facility] [address] [place], [address] Thyroid Stim Hormone (TSH)on 04-08-2025 TSH 1.360 uIU/mL Normal 0.300-4.200 [facility] Comment on above: Performed By: #### L 506.0400, L801.2600, L100.0100, L500.4100, L3300.1750, L500.4050, L501.9520 #### [facility] [address] [place], [address] Colonoscopy Reporton Colonoscopy Report [facility] Medical Records Department [facility] [place] [address] Colonoscopy Report MR#: [id number] Acct: [id number] Name: CLARIBEL WADDELL ANASTASIA Rep #: [id number] : 1980 44 From: Roberto Lutz DO PCP: Dr. Ryland Storm, Status:[facility] Patient Name: Claribel Waddell Procedure Date: 05/09/2024 8:58 AM Date of : 1980 Age: 44 Procedure: Colonoscopy Indications: Screening for colorectal malignant neoplasm Providers: Roberto Lutz DO Medicines: Monitored Anesthesia Care Patient Profile: This is a 44 year old female. Refer to note in patient chart for documentation of history and physical. Last Colonoscopy: none. The patient's first colonoscopy is today. Complications: No immediate complications. Procedure: Pre-Anesthesia Assessment: - Prior to the procedure, a History and Physical was performed, and patient medications and allergies were reviewed. The patient is competent. The risks and benefits of the procedure and the sedation options and risks were discussed with the patient. All questions were answered and informed consent was obtained. Patient identification and proposed procedure were verified by the physician in the pre-procedure area. Mental Status Examination: alert and oriented. Airway Examination: normal oropharyngeal airway and neck mobility. Respiratory Examination: clear to auscultation. CV Examination: normal. Prophylactic Antibiotics: The patient does not require prophylactic antibiotics. Prior Anticoagulants: The patient has taken no anticoagulant or antiplatelet agents. ASA Grade Assessment: II - A patient with mild systemic disease. After reviewing the risks and benefits, the patient was deemed in satisfactory condition to undergo the procedure. The anesthesia plan was to use monitored anesthesia care (MAC). Immediately prior to administration of medications, the patient was re-assessed for adequacy to receive sedatives. The heart rate, respiratory rate, oxygen saturations, blood pressure, adequacy of pulmonary ventilation, and response to care were monitored throughout the procedure. The physical status of the patient was re-assessed after the procedure. After I obtained informed consent, the scope was passed under direct vision. Throughout the procedure, the patient's blood pressure, pulse, and oxygen saturations were monitored continuously. The pediatric colonoscope was introduced through the anus and advanced to the terminal ileum. The colonoscopy was performed without difficulty. The patient tolerated the procedure well. The quality of the bowel preparation was adequate. The terminal ileum, ileocecal valve, appendiceal orifice, and rectum were photographed. Scope In: 9:12:33 AM Scope Withdrawal Time 0 hours 8 minutes 52 seconds Scope Out: 9:25:38 AM Total Procedure Duration Time 0 hours 13 minutes 5 seconds Findings: The perianal and digital rectal examinations were normal. An area of moderately congested mucosa was found in the cecum. Biopsies were taken with a cold forceps for histology. Verification of patient identification for the specimen was done. Estimated blood loss was minimal. The exam was otherwise without abnormality on direct and retroflexion views. The terminal ileum appeared normal. Impression: - Congested mucosa in the cecum. Biopsied. - The examination was otherwise normal on direct and retroflexion views. - The examined portion of the ileum was normal. Recommendation: - Discharge patient to home. - Resume previous diet. - Continue present medications. - Await pathology results. - Repeat colonoscopy in 10 years for screening purposes. Procedure Code(s): --- Professional --- 47107, Colonoscopy, flexible; with biopsy, single or multiple CPT copyright 2021 [employer]. All rights reserved. The codes documented in this report are preliminary and upon braille coder review may be revised to meet current compliance requirements. Roberto Lutz DO 05/09/2024 9:29:33 AM This report has been signed electronically. Number of Addenda: 0 Note Initiated On: 05/09/2024 8:58 AM 05/09/24928 Date Roberto Lutz DO Cosigner Signature: Date (if indicated) CC: Dr. Ryland Storm DO; Roberto Lutz DO Date Dictated: 05/09/24857 Date Transcribed: Supervisor Beam Department: JASVIR Signed Normal [facility] MR/POSTOP.Nickolas 05-09-2024 MR/POSTOP.[facility] Medical Records Department [address] [place] [address] Anesthesia Postop Eval I 05/09/24930 MR#: [id number] Acct: [id number] Name: CLARIBEL WADDELL ANASTASIA Rep #: [id number] : 1980 44 From: Shayne Palma PCP: Dr. Ryland Storm DO Status:REG SDC Y Race: C Location: [place] [address] Anesthesia: Postop Eval I Current Vital Signs Temperature: 97 F Pulse Rate: 109 Blood Pressure: 105/90 Respiratory Rate: 16 Pulse Ox: 100 Oxygen Delivery Method: Room Air Assessment Airway patent: Yes Spontaneous unlabored respirations: Yes Mental status: Asleep nausea: No Vomiting: No Anesthesia Complication: No Fluid Hydration Crystalloid volume administer (ml): 60 Total IV fluid infused: 60 Progress Note Anesthesia document: Postop Eval 1 completed: Yes 05/09/24 0932 Date Shayne Odom Signature: Date CC: Signed Normal [facility] [id number] 05-09-2024 [facility] Medical Records Department [address] [place] [address] Anesthesia Postop Eval II 05/09/24 1011 MR#: [id number] Acct: [id number] Name: CLARIBEL WADDELL ANASTASIA Rep #: [id number] : 1980 44 From: Anil Bustamante MD PCP: Dr. Ryland Storm, DO Status:REG SDC Y Race: C Location: [place] [address] Anesthesia Postop Eval I Sum Postop Eval Completion status Anesthesia document: Postop Eval 1 completed: Yes Anesthesia Postop Eval I Summary Anesthesia Postop Eval I Summary: Anesthesia Postop Eval I: Assessment Summary Airway patent Yes 05/09/24 09:32 [email or web address] Spontaneous unlabored Yes 05/09/24 09:32 [email or web address] respirations Mental status Asleep 05/09/24 09:32 [email or web address] nausea No 05/09/24 09:32 [email or web address] Vomiting No 05/09/24 09:32 [email or web address] Anesthesia Postop Eval I: Fluid Summary Crystalloid volume administer 60 05/09/24 09:32 [email or web address] (ml) Colloids volume administered ( ml) Blood Product volume administered (ml) Total IV fluid infused 60 05/09/24 09:32 [email or web address] Anesthesia Postop Eval I: Summary Notes Anesthesia Complication No 05/09/24 09:32 [email or web address] Anesthesia Complication Comment: Post-operative progress note Anesthesia: Postop Eval II Evaluation Mental status: Awake Pain Level: 0 nausea: No Vomiting: No 05/09/24 1011 Date Anil Odom Signature: Date CC: Signed [facility] [facility] Surgery Specimen Level Jose 05-09-2024 Surgery Specimen Level IV Patient Age/Sex Location Account Attending Physician CLARIBEL WADDELL 44/F EN [id number] Roberto Lutz, DO Specimen: [id number] Received: 05/09/24-1323 Status: JON Julian Num: [id number] Spec Type: COLON BX Subm Dr: Roberto Lutz DO HEADER OPERATION: Colonoscopy with biopsy PRE-OP DIAGNOSIS: Encounter for screening for malignant neoplasm of colon TISSUE SUBMITTED: Cecum biopsy MICROSCOPIC DIAGNOSIS Cecum, biopsy: Fragments of colonic mucosa, no pathologic diagnosis. 05/10/2024 MICROSCOPIC DESCRIPTION Slides are reviewed. GROSS DESCRIPTION Received in fixative is one container labeled with the patient's name and designated Cecum biopsy. The specimen consists of multiple irregular fragments of light jimenez soft tissue that in aggregate measure 1.0 x 0.3 x 0.1 cm. The specimen is totally submitted in one cassette. 05/09/2024 TC:4 CPT:93715 Patient Age/Sex Location Account Attending Physician CLARIBEL WADDELL 44/F EN [id number] Roberto Lutz DO Signed (signatur e on file) Dr. Bassem Willard MD 05/10/24 1231 Normal [facility] Comment on above: Performed By: #### P SUIV ####[facility] [address] [place], [place], [address] SCRN MAMM (CAD)W/CLAUDIA BILATo n 04-25-2024 SCRN MAMM (CAD)W/CLAUDIA BILAT [facility] [address], [place] [address] SCRN MAMM (CAD)W/CLAUDIA BILAT MR#: [id number] Acct: [id number] Name: CLARIBEL WADDELL Rep #: [id number] : 1980 F 44 From: Alvarez sharp MD PCP: Dr. Ryland Storm DO Status: REG [facility] Study: SCRN MAMM (CAD)W/CLAUDIA BILAT Date of Exam: 10/14 Exam# [id number] Ordering Dr: Ryland Storm DO -[id number] MAMMOGRAPHY - BILATERAL SCREENING REASON FOR EXAM: Female, 44 years old. Routine annual screening examination. PERTINENT HISTORY: Grandmother with breast cancer. TECHNIQUE: Digital bilateral breast claudia (3D mammographic acquisition) in the CC and MLO projections. 2-D mediolateral oblique (MLO) and craniocaudad (CC) views of both breasts were obtained. CAD: Full Field Digital Mammography with Computer Added Detection was performed. COMPARISON: Comparison is made with prior outside examination dated May 05, 2020. FINDINGS: Breast Composition: The breasts are extremely dense, which lowers the sensitivity of mammography. There are no dominant masses or suspicious calcifications. Stable small benign appearing bilateral axillary lymph nodes. No other significant abnormalities are identified. There has been no significant change since the prior study. BI/SCRN MAMM (CAD)W/CLAUDIA BILAT IMPRESSION: Stable bilateral screening mammogram. Yearly follow-up mammogram recommended. (A) ASSESSMENT CATEGORY: BIRADS Category 2: Benign. A letter regarding these results will be sent to the patient by the facility within 30 days. Approximately 10% of breast cancers are not detected by mammography. A normal mammogram should not delay biopsy of a clinically suspicious abnormality. [id number] Electronically Signed: Alvarez Avendano MD at 15:15 EDT , CC: Dr. Ryland Storm, DO Supervisor Beam Department: Signed Normal [facility] Clinical Summary: HMSPatient IDon 09-06-2018 OOP [place] [facility] [facility] Work Phone: Clinical Summary: Scanned RO S Summaryon 09-06-2018 endocrine ROS Martinez Trenti vead [facility] Work Phone: genitourinary review of systems, E&M Denvirgen [facility] Work Phone: Lymphocytes #/vol (Bld) Denvirgen [facility] Work Phone: Review of Systems Neurologic comment Numbness,Tingling [facility] Work Phone: ROS cardiovascular E&M Denies [facility] Work Phone: ROS ENT E&M Denies [facility] Work Phone: ROS gastrointestinal E&M Denies [facility] Work Phone: ROS general E&M Denies [facility] Work Phone: ROS Musculoskeletal comments Pain [facility] Work Phone: ROS musculoskeletal E&M Complains [facility] Work Phone: ROS neurological E&M Complains [facility] Work Phone: ROS psychiatric E&M Denies C[facility] Work Phone: ROS pulmonary E&M Denies [facility] Work Phone: ROS skin E&M Denies [facility] Work Phone: Office Visit: New - 1st visi t with practice, Rm: 40on 09-06-2018 NEGATED: Highlighted rowMRI (magnetic resonance imaging) history of the lumbar on 08/06/2018 at [facility] Work Phone: NEGATED: Highlighted rowProtein mass conc Done [facility] Work Phone: Clinical Lists Update: Prelo ad Extendedon 09-05-2018 Tobacco smoking status NHIS Tobacco smoking status NHIS [facility] Work Phone: Clinical Summary: Data Submi tted by Patient in [place] 09-05-2018 #DEP CHLDRN No Crystal [facility] Work Phone: 3+ETOHDAILY less than 1 drink per day [facility] Work Phone: ASTHEHSZHOUS 2 floors [facility] Work Phone: DEP ALG LIST I don't have any drug allergies.,I don't have any food allergies.,I don't have any environmental allergies. 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 [facility] Work Phone: DEP ETOH USE Yes [facility] Work Phone: DEP EXERCISE No [facility] Work Phone: DEP MED LIST Terbinafine 250 mg Tab, 1 times per day,Gabapentin 300 mg Cap, 3 times per day [facility] Work Phone: DEP PMH Depression [facility] Work Phone: DEP SH CSMO never smoker [facility] Work Phone: DEP SH MAST [facility] Work Phone: DEP SH OCCUP RN [facility] Work Phone: DEP SURGERY Hysterectomy, Lumbar spine discectomy [facility] Work Phone: DEPFHMATUNKN My mother's health history is unknown [facility] Work Phone: ETOHPERFRM wine [facility] Work Phone: FATHER A/D Alive [facility] Work Phone: MOTHER A/D Alive [facility] Work Phone: RLATNSHPINFR Self [facility] Work Phone: SWHOUTYPE house [facility] Work Phone: Vital Signs Date Time Vital Sign Value Performing Clinician Facility NEGATED: Highlighted [id number] 14:22-0500 BMI (Body Mass Index) 25.89 kg/m2 Sophie Winklestine BRICK MASON [facility] Work Phone: NEGATED: Highlighted [id number] 14:22-0500 BP Diastolic 80 mm[Hg] Sophie Winklestine BRICK MASON [facility] Work Phone: NEGATED: Highlighted [id number] 14:22-0500 BP Systolic 121 mm[Hg] Sophie Winklestine BRICK MASON [facility] Work Phone: NEGATED: Highlighted [id number] 14:22-0500 Height 165.1 cm Sophie Winklestine BRICK MASON [facility] Work Phone: NEGATED: Highlighted [id number] 14:22-0500 Height 165 cm Sophie Winklestine BRICK MASON [facility] Work Phone: NEGATED: Highlighted [id number] 14:22-0500 Pulse (Heart Rate) 80 /min Sophie Winklestine BRICK MASON [facility] Work Phone: NEGATED: Highlighted [id number] 14:22-0500 Weight 70.31 kg Sophie Winklestine BRICK MASON [facility] Work Phone: NEGATED: Highlighted [id number] 14:22-0500 Weight 70 kg Sophie Winklestine BRICK MASON [facility] Work Phone: Encounters Encounter Date Encounter Type Care Provider Facility Start: 04-29-2025 [facility] Facility: [facility] Start: 04-15-2025 Encounter for ananda l adult medical examination without abnormal findings [facility] Start: 04-08-2025 End: 04-08-2025 ambulatory [facility] Facility:[facility] Start: 05-09-2024 End: 05-09-2024 ambulatory [facility] Facility:[facility] Start: 04-25-2024 End: 04-25-2024 ambulatory [facility] Facility:[facility] Start: 09-06-2018 End: 09-07-2018 Patient encounter procedure Vijay Dolores Queen DO Work Phone: [facility] Work Phone: Procedures Date Procedure Procedure Detail Performing Clinician Start: 09-06-2018 End: 09-07-2018 Blood pressure within normal parameters - no follow-up required Vijay Bernal Queen DO Work Phone: Start: 09-06-2018 End: 09-07-2018 BMI documented as above normal parameters - follow-up documented Vijay Bernal Queen DO Work Phone: Start: 09-06-2018 End: 09-07-2018 Documentation of current medications Vijay Bernal Queen DO Work Phone: Start: 09-06-2018 End: 09-07-2018 Pain assessment documented as positive - follow-up documented Vijay Bernal Queen DO Work Phone: Start: 09-06-2018 End: 09-07-2018 Tobacco non-user Vijay Bernal Queen DO Work Phone: Plan of Treatment Date Care Activity Detail Author Start: 09-06-2018 End: 09-06-2018 Radex spine lumbosacral minimum 4 views XR LUMBAR 4VWS FLEX/EX [facility] Work Phone: Immunizations Immunization Date Immunization Notes Care Provider Edwige matute No information available. Sophie Davidson LPN [facility] Work Phone: Payers Date Payer Category Payer Self-pay 2024 Unknown [id number] Unknown [id number] Unknown [id number] [id number] Unknown [id number] [id number] [id number] Unknown [id number] [id number] [id number] Unknown [id number] [id number] [id number] Social History Date Type Detail Facility Start: 09-07-2018 End: 09-07-2018 Assertion Unknown if ever smoked [facility] Work Phone: Clinical Note 05-09-2024 Note Date & Type Note Facility 05-09-2024 Note [facility] Medical Records Department [address] [place] [address] History Physical Exam 05/09/24813 MR#: [id number] Acct: [id number] Name: CLARIBEL WADDELL ANASTASIA Rep #: [id number] : 1980 44 From: Roberto Friend DO PCP: Dr. Ryland Storm, DO Status:REG [facility] Location: [place] [address] HPI - General General Date of Admission: 05/09/24 Date of Service: 05/09/24 Chief Complaint: Colon cancer screening HPI Narrative CLARIBEL WADDELL, is a 44 F who presents for colon cancer screening. She has a positive family history of cancers polyps in her mother. She is not have any abdominal pain. She denies any nausea vomiting or diarrhea. She does not take any medicines on a daily basis. Overall she is in very good health. [facility] Medical History (Updated 05/08/24 @ 14:24 by Saritha Sanz) Wears glasses Depression Anxiety Alcohol use Low iron High cholesterol Back pain Non-smoker Family history of colon cancer in mother Home Medications ???Medication ???Instructions ???Recorded ???Last Taken ???Type doxylamine succinate 25 mg tablet 25 mg PO QHS 04/11/24 Unknown History (Unisom (doxylamine)) Allergy/AdvReac Type Severity Reaction Status Date / Time No Known Allergies Allergy Verified 05/09/24 08:15 Family History (Updated 04/11/24 @ 11:11 by Belle Jacobsen) Mother Colon cancer, Onset Age: 66 Cancerous polyps removed Grandmother Breast cancer Surgical History (Updated 05/08/24 @ 14:24 by Saritha Sanz) History of discectomy Hx of hysterectomy Hx of tubal ligation S/p bilateral myringotomy with tube placement Social History (Updated 04/11/24 @ 11:11 by Belle Jacobsen) household members: spouse and children current occupational status: employed current occupation: [employer] Smoking Status: Never smoker alcohol intake: current alcohol intake frequency: holidays/special occasions only substance use type: does not use ROS Review of Systems ROS Unobtainable: other Constitutional Constitutional: Denies fatigue, fever(s), poor appetite, weight gain or weight loss ENT HEENT: Denies mouth lesions Cardiovascular Cardiovascular: Denies abdominal bloating, abdominal edema or abdominal pain Respiratory/Chest Respiratory/Chest: Denies change in mental status, change in phlegm color, chest congestion or chest tightness Gastrointestinal Gastrointestinal: Denies belching, bloating, change in bowel habits, change in stool character, chewing difficulty, coffee ground emesis, constipation, cramping, diarrhea, dyspepsia, dysphagia, early satiety, excessive flatus, fecal incontinence, heartburn, hematemesis, hematochezia, hemorrhoids, loose stools, melena, nausea, odynophagia, rectal bleeding, tenesmus, vomiting or weight changes Genitourinary Genitourinary: Denies abdominal discomfort, burning urination or itching Musculoskeletal Musculoskeletal: Reports as per HPI; Denies muscle weakness or myalgias Integumentary Integumentary: Denies jaundice Neurologic Neurologic: Denies lack of coordination or weakness Psychiatric Psychiatric: Denies confusion, depression, memory loss, mood swings, paranoia or suicidal ideation Endocrine Endocrinology: Denies systems reviewed and no addt'l complaints, except as documented Hematologic/Lymphatic Hematologic/Lymphatic: Denies anemia, easy bleeding, easy bruising or lymphadenopathy Allergic/Immunologic Allergic/Immunologic: Denies systems reviewed and no addt'l complaints, except as documented Assessment Plan Assessment/Plan (1) Encounter for screening for malignant neoplasm of colon: PLAN: She was explained alternatives, risk, benefits include not withstanding bleeding, infection, sepsis, perforation, need for emergent surgery and . She will have an ASA of 3. 05/09/2417 Cosigner Signature (if applicable): CC: Dr. Ryland Storm, DO; Roberto Lutz, Signed [facility] Chief Complaint Chief Complaint Description Start Date lower back pain Preliminary chief co mplaint data, not yet signed by the author as of Instructions Instruction Description Start Date CompletedPatient advised to follow-up with Primary Care Physician for BMI management. Advance Directives There may be information available, but it has not been provided by the sender. No Advanced Directives Records Found Assessments There may be information available, but it has not been provided by the sender. Review of System There may be information available, but it has not been provided by the sender. Family History There may be information available, but it has not been provided by the sender.No Family History Records Found History of Present Illness There may be information available, but it has not been provided by the sender. Summary Purpose Additional Source Comments Reason for Visit (unrecogniz ed section and content) Reason For Visit Description New - 1st visit with practice Preliminary reason f or visit data, not yet signed by the author as of lower back pain INFORMATION SOURCE (unrecogn ized section and content) DATE CREATED AUTHOR 04/16/2025 [facility] FOR RECORDS PERTAINING TO PATIENTS WHO ARE OR HAVE BEEN ENROLLED IN A CHEMICAL DEPENDENCY/SUBSTANCEABUSE PROGRAM, SOME INFORMATION MAY BE OMITTED. This clinical summary was aggregated from multiple sources. Caution should be exercised in using it in the provision of clinical care. This summary normalizes information from multiple sources, and as a consequence, information in this document may materially change the coding, format and clinical context of patient data. In addition, data may be omitted in some cases. CLINICAL DECISIONS SHOULD BE BASED ON THE PRIMARY CLINICAL RECORDS. [employer] provides no warranty or guarantee of the accuracy or completeness of information in this document.
[2025-04-25] MEDS: 0.9% Normal Saline (1000mL) 1,000 ML 999 ML IV (04:30)
[2025-04-25 04:37] LABS: Mucous, Urine 0 SEEN /hpf (<or=2+); Red Blood Cells-Urine 0 SEEN /hpf (0-5); Squamous Epithelial Cells - UA 0 SEEN /hpf (5-10)
[2025-04-25 04:38] LABS: Hematocrit 41.1 % (37-47); Hemoglobin 13.2 g/dL (12.0-15.0); Immature Granulocytes Count 0.020 X10^3/uL (0.0-0.0); Mean Corp Hgb Conc 32.1 g/dL (32-36); Mean Corpuscular Volume 94.1 fL (81-99); Mean Platelet Vol. 10.0 fl (6.2-12.0); NRBC Flagged by Analyzer 0 % (0-5); Platelet Count 261 K/mm3 (150-450); RBC Distribution Width CV 12.8 % (11.6-14.6); RBC Distribution Width SD 44.2 fl (35.1-43.9); Red Blood Count 4.37 M/mm3 (4.2-5.4); White Blood Count 5.9 K/mm3 (4.4-11.0)
[2025-04-25 04:40] LABS: Color, Urine Yellow (Yellow); Glucose, Dipstick Normal (Normal); Ketone-Dipstick Negative (Negative); Leukocyte Esterase-Dipstick Negative /ul (Negative); Nitrite-Dipstick Positive (Negative); Occult Blood-Urine Negative /ul (Negative); Protein-Dipstick 15 mg/dl (Negative); Specific Gravity, Urine 1.015 (1.002-1.030); Urine Bilirubin Dipstick Negative (Negative)
--- NOTE | 2025-04-25 04:45 | CT_ITS ---
PROCEDURE: ABDOMEN/PELVIS W IV CONT ONLY 04/25/2025 REASON FOR EXAM: RUQ PAIN TECHNIQUE: Procedure Code: [id number] Modality: CT Procedure: ABDOMEN/PELVIS W IV CONT ONLY Coronal and Sagittal reconstruction series were provided. CONTRAST: OMNIPAQUE 350 VOLUME: 100 mL One or more dose reduction techniques were used (e.g., Automated exposure control, adjustment of the mA and/or kV according to patient size, use of iterative reconstruction technique. RADIATION DOSE SUMMARY: CTDlvol: 13.68 mGy DLP: 736 mGycm COMPARISON: None. FINDINGS: Distended, diffusely thickened gallbladder. Mild amount of pericholecystic free fluid. Findings are suspicious for acute cholecystitis. Prior hysterectomy. Mild diffuse thickening of the bladder. Please correlate for mild cystitis. Scattered left renal simple cysts are noted with the largest measuring 1.2 cm. Mild focal spondylosis at L5-S1. The visualized lung bases are unremarkable. Normal liver. Normal extrahepatic biliary system. Normal spleen. Normal pancreas. Normal bilateral adrenal glands. Normal size of the right kidney. There is no right renal mass. There are no right renal calculi. There is no right hydronephrosis. Normal visualized right ureter. Normal size of the left kidney. There is no left renal mass. There are no left renal calculi. There is no left hydronephrosis. Normal visualized left ureter. Normal visualized stomach. Normal small intestine. Normal colon. The appendix is visualized and appears normal. Normal abdominal aorta. Normal inferior vena cava. Normal retroperitoneum. There is no pelvic mass lesion or lymphadenopathy. Normal abdominal wall. CT/Abdomen/Pelvis W IV Cont ONLY IMPRESSION: Distended, diffusely thickened gallbladder. Mild amount of pericholecystic free fluid. Findings are suspicious for acute cholecystitis. Prior hysterectomy. Mild diffuse thickening of the bladder. Please correlate for mild cystitis. Scattered left renal simple cysts are noted with the largest measuring 1.2 cm. Mild focal spondylosis at L5-S1. Findings were discussed with Dr. Hernán Schmitt in the emergency department at 5 a.m. EST. Reading Location: [place] [address]
[2025-04-25 05:25] LABS: Lipase 39 U/L (13-75)
[2025-04-25 05:27] LABS: AST(SGOT) 26 U/L (<=31); Alanine Aminotransfer ALT/SGPT < 5 U/L (<=34); Albumin, Serum 4.2 g/dL (3.5-5.0); Alkaline Phosphatase 49 U/L (35-104); Anion Gap 12 (5-15); BUN 10 mg/dL (4-19); BUN/Creat Ratio 11.6 RATIO (10-20); Bilirubin, Direct < 0.08 mg/dL (0.00-0.30); Calcium,Total 8.9 mg/dL (7.6-11.0); Carbon Dioxide 22.1 mmol/L (21.0-32.0); Chloride 102 mmol/L (98-108); Estimated Creatinine Clearance 82.54 ml/min (50-250); Globulin 2.6 g/dL (2.2-4.2); Glucose 102 mg/dL (70-99); Potassium 3.8 mmol/L (3.3-5.1)
--- NOTE | 2025-04-25 05:40 | US_ITS ---
PROCEDURE: GALLBLADDER 04/25/2025 REASON FOR EXAM: ? ACUTE CHOLECYSTITIS TECHNIQUE: Procedure Code: USGB Modality: US Procedure: GALLBLADDER COMPARISON: Recent CT FINDINGS: Liver: Mildly heterogeneous echotexture. No focal mass normal hepatic and portal flow Gallbladder: Moderately distended contains stones has irregular gallbladder wall thickening and pericholecystic fluid. Biliary ducts: Normal measuring 4 mm. No intrahepatic or extrahepatic ductal dilatation Right kidney normal-size and echotexture measures 10.0 cm in length. Imaged pancreas negative. US/Gallbladder IMPRESSION: Acute cholecystitis. Reading Location: [id number]
[2025-04-25] MEDS: Piperacil/Tazobactam 3.375 GM in 0.9% Normal Saline (50mL MB+) 50 ML IV ×2 (05:44→13:19)
[2025-04-25] MEDS: Pantoprazole Sodium 40 MG in 0.9% Normal Saline (100mL MB+) 100 ML 300 MG IV (06:17)
--- NOTE | 2025-04-25 07:42 | EX.ED.DYSGE1 ---
HPI History of Present Illness Chief Complaint: Abd Pain Informant: patient and spouse/S.O. Narrative Narrative: Patient is a 45-year-old female with past medical history of anxiety/depression. She states on she had a late lunch dinner at a restaurant where she had greasy foods such as chicken wings. She states then that evening she had a milkshake. She states a few hours later she noted pain in her back. She states there was no trauma or excessive activity prior to the pain starting. She states that she will occasionally get back discomfort so this was not abnormal and she did her normal routine where she took a Unisom as well as a muscle relaxer and went to sleep. However she awoke in the middle of the night and reports increasing pain now more in the right upper quadrant with nausea. With concern that symptoms could be related to her gallbladder she presents for evaluation. [facility] Medical History Wears glasses Depression Anxiety Alcohol use Low iron High cholesterol Back pain Non-smoker Family history of colon cancer in mother Home Medications ?Medication ?Instructions ?Recorded ?Last Taken ?Type doxylamine succinate 25 mg tablet 25 mg PO QHS 04/11/24 Unknown History (Unisom (doxylamine)) atenolol 50 mg tablet 50 mg PO DAILY 04/25/25 Unknown History cyclobenzaprine 10 mg tablet 10 mg PO Q8H PRN muscle spasm 04/25/25 Unknown History duloxetine 60 mg capsule,delayed 120 mg PO QDAY 04/25/25 Unknown History release Allergy/AdvReac Type Severity Reaction Status Date / Time No Known Allergies Allergy Verified 04/25/25 04:07 Family History Mother Colon cancer, Onset Age: 66 Cancerous polyps removed Grandmother Breast cancer Surgical History History of discectomy Hx of hysterectomy Hx of tubal ligation S/p bilateral myringotomy with tube placement Social History household members: spouse and children current occupational status: employed current occupation: [employer] Smoking Status: Never smoker alcohol intake: current alcohol intake frequency: holidays/special occasions only substance use type: does not use ROS ROS ED Constitutional Constitutional ED: Denies chills or fever(s) ENT ENT ED: Denies sore throat Cardiovascular Cardiovascular: Denies chest pain Respiratory/Chest Respiratory/Chest: Denies cough or dyspnea Gastrointestinal Gastrointestinal: Reports abdominal pain and nausea; Denies diarrhea or vomiting Genitourinary Genitourinary ED: Denies dysuria or hematuria Musculoskeletal Musculoskeletal: Reports back pain Integumentary Denies rash Neurologic Neurologic: Denies headache(s) Hematologic/Lymphatic Hematologic/Lymphatic: Denies easy bleeding or easy bruising EXAM Physical Exam Const Vital Signs: 04/25/25 04:07 04/25/25 06:07 04/25/25 08:00 Temperature 97.8 F Temperature Source Oral Pulse Rate 68 78 65 Respiratory Rate 18 16 14 Blood Pressure 138/96 H 118/79 110/86 H Blood Pressure Mean 110 92 94 Pulse Ox 100 100 100 Oxygen Delivery Method Room Air Room Air Positive well nourished and well developed General Appearance ED: well developed; Negative for pallor HEENT HEENT Narrative: Normocephalic atraumatic Eyes PERRL and EOMs intact bilaterally General Eye ED: Negative for scleral icterus Neck supple Resp normal respiratory effort and clear to auscultation bilaterally Cardio regular rate and regular rhythm GI non-distended and no masses GI Narrative: Abdomen is soft and nondistended with normal active bowel sounds. There is pain with palpation in the right upper quadrant but no voluntary guarding or rigidity. Negative Dai sign. No pulsatile mass Auscultation: normoactive bowel sounds Palpation: soft Back/Spine no CVA tenderness Extremity normal to inspection Neuro oriented x3, CN's II-XII intact bilaterally and no sensory deficits noted Sensorium / Orientation: alert Motor Exam: strength 5/5 throughout Psych mental status grossly normal Skin no rashes or lesions noted and no wounds General Skin Exam: Negative for jaundice or pallor MDM MDM MDM Narrative Medical decision making narrative: Patient arrived to ER mildly hypertensive but otherwise with stable vitals. With the report of back pain now progressing the right upper quadrant pain and eating greasy fatty food earlier in the day/night there is concern this is biliary colic versus acute cholecystitis versus pancreatitis. Therefore basic labs were obtained as well as a CT scan of the abdomen pelvis as I cannot perform an ultrasound at this time of the night. Labs revealed no leukocytosis or left shift. Lipase is normal going against pancreatitis and there is no elevation to her liver enzymes. Urine sample showed changes concerning for UTI but patient does not have dysuria or urinary frequency and there is no CVA pain to suggest pyelonephritis. CT scan of the abdomen pelvis revealed thickened gallbladder with John cholecystic fluid concerning for acute cholecystitis. Secondary to this the case was discussed with general surgeon on-call Dr. Pugh. She recommends that the patient receive a gallbladder ultrasound to ensure that this is acute cholecystitis and therefore this was ordered. Gallbladder ultrasound did show gallstones with a thickened gallbladder and John cholecystic fluid consistent with acute cholecystitis. The patient was treated with IV Zosyn secondary to concern for infection and as the urine also showed concerns for infection despite patient having no urinary symptoms it was sent for culture as well. The case was once again discussed with general surgeon Dr. Pugh regarding the patient's ultrasound. At this time based on her symptoms and imaging studies she admitted the patient to the hospital for continued care and potential acute cholecystectomy. Plan of care was discussed with the patient who is agreeable to it History & Record Review Discussion w/independent historian: Patient Lab Data Attestation: I reviewed the patient's lab results. Labs: Laboratory Results - last 24 hr 04/25/25 04:20 WBC 5.9 RBC 4.37 Hgb 13.2 Hct 41.1 MCV 94.1 MCH 30.2 MCHC 32.1 RDW Std Deviation 44.2 H RDW Coeff of Naa 12.8 Plt Count 261 MPV 10.0 Immature Gran % (Auto) 0.300 Neut % (Auto) 54.0 Lymph % (Auto) 32.3 [place] % (Auto) 10.3 H Eos % (Auto) 2.6 Baso % (Auto) 0.5 Absolute Neuts (auto) 3.2 Absolute Lymphs (auto) 1.89 Nucleated RBC % 0 Sodium 136 Potassium 3.8 Chloride 102 Carbon Dioxide 22.1 Anion Gap 12 BUN 10 Creatinine 0.84 Estim Creat Clear Calc 82.54 Est GFR (MDRD) Non-Af 87 BUN/Creatinine Ratio 11.6 Glucose 102 H Calcium 8.9 Total Bilirubin 0.18 Direct Bilirubin < 0.08 AST 26 ALT < 5 Alkaline Phosphatase 49 Total Protein 6.8 Albumin 4.2 Globulin 2.6 Lipase 39 Urine Color Yellow Urine Clarity Clear Urine pH 6.0 Ur Specific [place] 1.015 Urine Protein 15 H Urine Glucose (UA) Normal Urine Ketones Negative Urine Occult Blood Negative Urine Nitrite Positive H Urine Bilirubin Negative Urine Urobilinogen Normal Ur Leukocyte Esterase Negative Urine RBC 0 SEEN Urine WBC 0 SEEN Ur Squamous Epith Cells 0 SEEN Urine Bacteria 3+ Urine Mucus 0 SEEN Radiography Diagnostic Testing: Clinical Impression(s) from Imaging Studies Abdomen/Pelvis CT 04/25/25 04:45 IMPRESSION: Distended, diffusely thickened gallbladder. Mild amount of pericholecystic free fluid. Findings are suspicious for acute cholecystitis. Prior hysterectomy. Mild diffuse thickening of the bladder. Please correlate for mild cystitis. Scattered left renal simple cysts are noted with the largest measuring 1.2 cm. Mild focal spondylosis at L5-S1. Findings were discussed with Dr. Hernán Schmitt in the emergency department at 5 a.m. EST. Reading Location: [place] [id number] Gallbladder Ultrasound 04/25/25 05:40 IMPRESSION: Acute cholecystitis. Reading Location: [id number] Management Discussion w/another healthcare provider: [employer]ne[employer] Discharge Plan Dx/Rx/DC Orders Clinical Impression: Acute calculous cholecystitis, Anxiety and depression Disposition Disposition: Acute Care [facility]
--- NOTE | 2025-04-25 07:59 | EKG12_ITS ---
Test Reason : PRE OP Blood Pressure : */* mmHG Vent. Rate : 70 BPM Atrial Rate : 70 BPM P-R Int : 150 ms QRS Dur : 86 ms QT Int : 396 ms P-R-T Axes : 46 20 17 degrees QTcB Int : 427 ms Normal sinus rhythm Normal ECG Confirmed by MISA SINGER, ANA LUISA ([id number]), publishing editor GARRY RICHARDSON ([id number]) on 04/28/2025 6:21:19 AM Referred By: Confirmed By: ANA LUISA BYNUM MD
--- NOTE | 2025-04-25 08:01 | HP.PCM.SX_ITS ---
HPI - General General Date of Admission: 04/25/25 HPI Narrative CLARIBEL WADDELL, is a 45 F who presents to the ER due to right upper quadrant pain starting last night after eating. Patient CT abdomen pelvis showed distended gallbladder with wall thickening. Patient had normal LFTs and white blood cell count. Patient did get an ultrasound which all showed Pericholecystic fluid, thickened gallbladder wall and gallstones normal common bile duct. Patient's only abdominal surgery is a tubal and umbilical hernia repair at that she does not believe she has mesh, patient did have a vaginal hysterectomy as well. [facility] Medical History Wears glasses Depression Anxiety Alcohol use Low iron High cholesterol Back pain Non-smoker Family history of colon cancer in mother Home Medications ?Medication ?Instructions ?Recorded ?Last Taken ?Type doxylamine succinate 25 mg tablet 25 mg PO QHS 4 Unknown History (Unisom (doxylamine)) atenolol 50 mg tablet 50 mg PO DAILY 04/25/25 Unkn own History cyclobenzaprine 10 mg tablet 10 mg PO Q8H PRN muscle s pasm 04/25/25 Unknown History duloxetine 60 mg capsule,delayed 120 mg PO QDAY Unknown History release Allergy/AdvReac Type Severity Reaction Status Date / Time No Known Allergies Allergy Verified 04/25/25 04:07 Family History Mother Colon cancer, Onset Age: 66 Cancerous polyps removed Grandmother Breast cancer Surgical History History of discectomy Hx of hysterectomy Hx of tubal ligation S/p bilateral myringotomy with tube placement Social History household members: spouse and children current occupational status: employed current occupation: [employer] Smoking Status: Never smoker alcohol intake: current alcohol intake frequency: holidays/special occasions only substance use type: does not use Vital Signs Vital Signs Vital Signs: 04/25/25 04:07 04/25/25 06:07 Temperature 97.8 F Temperature Source Oral Pulse Rate 68 78 Respiratory Rate 18 16 Blood Pressure 138/96 H 118/79 Blood Pressure Mean 110 92 Pulse Ox 100 100 Oxygen Delivery Method Room Air Weight Weight: 155 lb 13.869 oz Body Mass Index (BMI) 25.9 Physical Exam Const alert, oriented x3 and no apparent distress HEENT normocephalic and head/scalp atraumatic Resp normal respiratory effort Cardio regular rate GI soft to palpation; Negative for non-distended Palpation: tender RUQ; Negative for guarding Extremity no clubbing, cyanosis or edema Neuro CN's II-XII intact bilaterally Psych mental status grossly normal Results Lab / Micro Data 04/25/25 04:20 04/25/25 04:20 Labs: Laboratory Results - last 24 hr 04/25/25 04:20: WBC 5.9, RBC 4.37, Hgb 13.2, Hct 41.1, MCV 94.1, MCH 30.2, MCHC 32.1, RDW Std Deviation 44.2 H, RDW Coeff of Naa 12.8, Plt Count 261, MPV 10.0, Immature Gran % (Auto) 0.300, Neut % (Auto) 54.0, Lymph % (Auto) 32.3, [place] % (Auto) 10.3 H, Eos % (Auto) 2.6, Baso % (Auto) 0.5, Absolute Neuts (auto) 3.2, Absolute Lymphs (auto) 1.89, Nucleated RBC % 0, Sodium 136, Potassium 3.8, Chloride 102, Carbon Dioxide 22.1, Anion Gap 12, BUN 10, Creatinine 0.84, Estim Creat Clear Calc 82.54, Est GFR (MDRD) Non-Af 87, BUN/Creatinine Ratio 11.6, G lucose 102 H, Calcium 8.9, Total Bilirubin 0.18, Direct Bilirubin < 0.08, AST 26, ALT < 5, Alkaline Phosphatase 49, Total Protein 6.8, Albumin 4.2, Globulin 2.6, Lipase 39, Urine Color Yellow, Urine Clarity Clear, Urine pH 6.0, Ur Specific [place] 1.015, Urine Protein 15 H, Urine Glucose (UA) Normal, Urine Ketones Negative, Urine Occult Blood Negative, Urine Nitrite Positive H, Urine Bilirubin Negative, Urine Urobilinogen Normal, Ur Leukocyte Esterase Negative, Urine RBC 0 SEEN, Urine WBC 0 SEEN, Ur Squamous Epith Cells 0 SEEN, Urine Bacteria 3+, Urine Mucus 0 SEEN Imaging Radiology Impression Abdomen/Pelvis CT 04/25/25 04:45 IMPRESSION: Distended, diffusely thickened gallbladder. Mild amount of pericholecystic free fluid. Findings are suspicious for acute cholecystitis. Prior hysterectomy. Mild diffuse thickening of the bladder. Please correlate for mild cystitis. Scattered left renal simple cysts are noted with the largest measuring 1.2 cm. Mild focal spondylosis at L5-S1. Findings were discussed with Dr. Hernán Schmitt in the emergency department at 5 a.m. EST. [id number] 04/25/25 05:40 IMPRESSION: Acute cholecystitis. Reading Location: [id number] Assessment & Plan Assessment/Plan (1) Acute calculous cholecystitis: PLAN: Plan Reviewed the anatomy with the patient and discussed the procedure:robotic/ laparoscopic cholecystectomy with possible cholangiograms, possible open. Review risks including but not limited to bleeding, infection, hernia, bile leak, retained gallstones requiring another procedure ERCP- Endoscopic Retrograde Cholangiopancreatography, injury to another organ (bile ducts, common bile duct, small bowel, etc.) and conversion to an open procedure. All questions were answered. Rosalia Pugh M.D. Pager: [phone] [facility] [address] [place] [address], [address] [place] [address] Office: [phone]
[2025-04-25] MEDS: 0.9% Saline Lock 10 ML Syringe IV ×2 (10:20→17:00)
[2025-04-25] MEDS: 0.9% Normal Saline (1000mL) 1,000 ML 130 ML IV (10:28)
--- NOTE | 2025-04-25 11:07 | PRE.ANES_ITS ---
ASA Classification* ASA Classification ASA Classification: 2 Assessment & Plan Anesthesia* Anesthesia Assessment Anesthesia Assessment: Discussed sedation and/or anesthesia options, risks, benefits, and alternatives with patient/parents/legal guardian/POA. Questions invited. The patient/parents/legal guardian/POA seems to understand and agrees to proceed with anesthesia plan. Reviewed the physical assessment, medical history, allergy history and patient home medications list prior to surgery/procedure/anesthetic and documented any changes. Performed airway and anesthesia risk assessments. Anesthesia Type Anesthesia Type: General Anesthesia Focused Assessment* Temperature: 97.6 F Pulse Rate: 68 Blood Pressure: 113/87 Respiratory Rate: 17 Pulse Ox: 100 Airway Assessment Mouth opens: >3 cm Mallampati Score: II Labs Anesthesia Preop lab: CBC WBC, (4.4-11.0) 5.9 K/mm3 Today, 04:20 RBC, (4.2-5.4) 4.37 M/mm3 Today, 04:20 Hgb, (12.0-15.0) 13.2 g/dL Today, 04:20 Hct, (37-47) 41.1 % Today, 04:20 Plt Count, (150-450) 261 K/mm3 Today, 04:20 CHEMISTRY Potassium, (3.3-5.1) 3.8 mmol/L Today, 04:20 Sodium, (133-145) 136 mmol/L Today, 04:20 BUN, (4-19) 10 mg/dL Today, 04:20 Creatinine, (0.70-1.20) 0.84 mg/dL Today, 04:20 Glucose, (70-99) 102 mg/dL H Today, 04:20 TSH, (0.300-4.200) 1.360 uIU/mL 04/08/25, 09:07 COAG PT, (11.7-14.9) 12.0 SECONDS 10/26/15, 13:50 Urine Test Negative Negative 04/23/15, 10:45 Pre-Assessment Diagnosis/Proposed Procedure Planned Operative Procedure(s): Laparoscopic robotic cholecystectomy Anesthesia History 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 When Was Last Pacemaker Check QUESTION #4 FULL TEXT: You/Your Family Experience fever (hyperthermia) with Anesthesia Last Oral Intake Last Oral intake: Last Oral Intake NPO since 04:00 04/25/25 09:58 Meds taken in AM with sips of No 04/25/25 09:58 water? Meds patient instructed to take am of surgery PONV PONV - electric brain wave equipment mechanic: PONV - electric brain wave equipment mechanic Female HX of Motion Sickness HX of N/V After Surgery Non-Smoker Duration of Surgery greater than 60 minutes Number of Risk Factors PONV Score Height & Weight Height & Weight: Anesthesia: Height & Weight Height 5 ft 5 in 04/25/25 10:06 Weight: 70.534 kg 04/25/25 10:06 Body Mass Index (BMI) 25.9 04/25/25 10:06 Respiratory Assessment Respiratory Assessment - electric brain wave equipment mechanic: Respiratory Tract Infection Hx - electric brain wave equipment mechanic Hx Respiratory Tract Infection No 04/25/25 09:58 STOP Sleep Apnea STOP Sleep Apnea - electric brain wave equipment mechanic: STOP Sleep Apnea - electric brain wave equipment mechanic Hx Hypertension No 04/25/25 08:37 Hx Sleep Apnea No 04/25/25 08:37 CPAP No 04/25/25 08:37 BIPAP No 04/25/25 08:37 Do you snore loudly (louder No 04/25/25 08:37 than talking or can be heard Do you often feel tired/ No 04/25/25 08:37 fatigued/ sleepy during daytime? Has anyone observed you stop No 04/25/25 08:37 breathing during sleep? STOP Results Negative 04/25/25 08:37 QUESTION #5 FULL TEXT : Do you snore loudly (louder than talking or can be heard through closed doors)? 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 Specify any problems Hx of Preganancy in last 3 No 04/25/25 08:37 Months Nurse Filling Out Transfusion GENIA 04/25/25 08:37 & Questions: Date: 04/25/25 04/25/25 08:37 Time: 08:50 04/25/25 08:37 Patient unable to answer at this time (ie. confused, unrespo /Reproduction History /Reproductive History - electric brain wave equipment mechanic: /Reproductive Hx- electric brain wave equipment mechanic Hx Now No 04/25/25 09:58 Gestational Age (in weeks): EDC: Hx Hx Para Hx Section SAB No 04/25/25 08:37 Active Medications Active Medications: Current Medications Generic Name Dose Route Start Last Admin Trade Name Freq PRN Reason Stop Dose Admin Acetaminophen 650 mg 04/25/25 08:36 Acetaminophen 325 Mg Tablet PO Q6H PRN PRN Pain Score 1-10 Sodium Chloride 1,000 mls @ 130 mls/hr 04/25/25 08:36 04/25/25 10:30 IV 0 mls/hr .[id number] ALBIN Infusion Pantoprazole Sodium 40 mg/ 100 mls @ 300 mls/hr 04/26/25 10:00 Sodium Chloride IV Q24 ALBIN Piperacillin Sod/Tazobactam 50 mls @ 12.5 mls/hr 04/25/25 14:00 Sod 3.375 gm/ Sodium Chloride IV Q8 ALBIN Sodium Chloride 250 mls @ 15 mls/hr 04/25/25 08:40 IV .[id number] PRN Saline Flush Sodium Chloride 250 mls @ 15 mls/hr 04/25/25 08:40 IV .[id number] PRN Additional IVPB Infusion Indocyanine Green 3.75 mg/ N/A 1.5 mls @ 999 mls/hr 04/25/25 11:45 IV 04/25/25 11:46 PREOP ONE Ketorolac Tromethamine 15 mg 04/25/25 08:36 Ketorolac 15 Mg/Ml Vial IV Q6H PRN PRN Pain Score 1-10 Morphine Sulfate 2 - 4 mg 04/25/25 08:36 Morphine 2 Mg/Ml Syringe IV Q2H PRN PRN Pain Score 4-10 Morphine Sulfate 2 - 4 mg 04/25/25 08:49 04/25/25 10:19 Morphine 4 Mg/Ml Syringe IV 2 mg Q2H PRN PRN Administration Pain Score 4-10 Ondansetron HCl 4 mg 04/25/25 08:36 04/25/25 10:19 Ondansetron 4 Mg/2 Ml Vial IV 4 mg Q8H PRN PRN Administration NAUSEA/VOMITING Oxycodone HCl 5 - 10 mg 04/25/25 08:36 Oxycodone 5 Mg Tablet PO Q4H PRN PRN Pain Score 4-10 Sodium Chloride 10 - 40 ml 04/25/25 08:40 04/25/25 10:20 0.9% Saline Lock 10 Ml Syringe IV 20 ml UD PRN Administration SALINE FLUSH PFSH Medical History Wears glasses Depression Anxiety Alcohol use Low iron High cholesterol Back pain Non-smoker Family history of colon cancer in mother Home Medications ?Medication ?Instructions ?Recorded ?Last Taken ?Type doxylamine succinate 25 mg tablet 25 mg PO QHS 4 Unknown History (Unisom (doxylamine)) atenolol 50 mg tablet 50 mg PO DAILY heart palpita tions 04/25/25 Unknown History cyclobenzaprine 10 mg tablet 10 mg PO Q8H PRN muscle s pasm 04/25/25 Unknown History duloxetine 60 mg capsule,delayed 120 mg PO QDAY anxiet y/depression 04/25/25 Unknown History release Allergy/AdvReac Type Severity Reaction Status Date / Time No Known Allergies Allergy Verified 04/25/25 11:05 Family History Mother Colon cancer, Onset Age: 66 Cancerous polyps removed Grandmother Breast cancer Surgical History History of discectomy Hx of hysterectomy Hx of tubal ligation S/p bilateral myringotomy with tube placement Social History household members: spouse and children current occupational status: employed current occupation: [employer] Smoking Status: Never smoker alcohol intake: current alcohol intake frequency: holidays/special occasions only substance use type: does not use Review of Systems (Anesthesia) ROS Narrative System reviewed and no additional complaints, except as documented.
[2025-04-25] MEDS: 0.9% Normal Saline (500mL Bag) 500 ML IV (11:10)
[2025-04-25] MEDS: INDOCYANINE GREEN 3.75 MG in Syringe 1.5 ML 999 MG IV (11:11)
--- NOTE | 2025-04-25 12:30 | GALL_PTH ---
PATIENT: CLARIBEL WADDELL LOC: PCU U#:[id number] AGE/SX: 45/F ROOM: [facility] RE04/25/[address]: Dr. Rosalia Pugh MD : [id number] BED: 1 DIS: 04/25/2025 SPEC #: [id number] RECD: 04/25/25 15:42 STATUS: JON REClaire #: [id number] DANIELE: 04/25/25 12:[address]: Rosalia Pugh DEPT: SURGICAL PATHOLOGY RECD BY: Bro Hollins ENTERED: 04/28/25 10:20 SP TYPE: LEONIDAS HARDIN DR: Dr. Ryland Storm, DO Tissues: A - Gallbladder, NOS Procedures: Surgery Specimen Level III HEADER OPERATION: Robotic cholecystectomy PRE-OP DIAGNOSIS: Acute calculous cholecystitis TISSUE SUBMITTED: A- Gallbladder MICROSCOPIC DIAGNOSIS A. Gallbladder, robotic cholecystectomy: * Chronic cholecystitis with focal cholesterolosis * Cholelithiasis MICROSCOPIC DESCRIPTION Slides are reviewed. GROSS DESCRIPTION A. Received in formalin labeled with the patient's name and date of . Designated as gallbladder is a 10.6 x 3.1 x 2.9 cm green, glistening, intact and distended gallbladder with attached patent cystic duct (inked black, shaved). A lymph node is not present. Opening reveals green, tenacious bile and multiple, yellow and bosselated choleliths, ranging 0.4 cm to 0.7 cm. The mucosa is green and granular with a maximum wall thickness of 0.1 cm. Cholesterolosis is present. Pickers Material Handlers sections are submitted in 1 cassette. IN 04/28/2025 CPT:23244
[2025-04-25] MEDS: Piperacil/Tazobactam 3.375 GM/50 ML ML IV (13:19)
[2025-04-25] MEDS: Midazolam 2 MG/2 ML Syringe IV (13:19)
[2025-04-25] MEDS: Lidocaine 1% (5 ml sdv) 5 ML Vial 8 ML IV (13:26)
[2025-04-25] MEDS: fentaNYL 100 MCG/2 ML Ampul IV (13:53)
--- NOTE | 2025-04-25 14:20 | CHAPLAIN ---
Type of Pastoral Visit ___ Initial Visit ___ Follow-up Visit ___ On-call Visit ___ General Patient Visit ___ Spiritual Assessment ___ Family Conference ___ Bereavement ___ Rapid Response ___ Code Blue ___ Other (describe below) Pastoral Care Referral From ___ Patient ___ Family ___ Nurse ___ Physician ___ Bioinformatics Engineer ___ Leather Cartridge Belt Maker ___ Other (describe below) Sacrament/Intervention ___ Active listening ___ Anointing ___ Buddhist ___ Bereavement ___ Communion ___ Tonya exploration ___ ___ Life review ___ Prayer ___ Reconciliation ___ Sacrament of Sick ___ Supportive presence ___ Wedding ___ Other (describe below) Pastoral Comments patient is unavailable due to being in surgery; left a calling card
[2025-04-25] MEDS: Bupiv/Epi 0.25% 30 ML Vial (14:31)
--- NOTE | 2025-04-25 14:39 | PCM.OPRPT ---
Operative Report (Standard) Operative Information Date of Procedure: 04/25/25 Pre-Operative Diagnosis: Acute cholecystitis Post-Operative Diagnosis: Same Surgery/Procedure Performed: Robotic cholecystectomy with ICG order picker/assembler: Yes C Wpf Developer: Shirley Will Tasks completed by mail handler assistant: Opening & closing and Retracting Type of Anesthesia: General/Supplemental RN Documented Start/Stop Times: Operation Date: 04/25/25 12:30 Case Time Into Pre-Op 04/25/25 10:59 Anesthesia Start 04/25/25 13:19 Into Room 04/25/25 13:19 Procedure Start 04/25/25 13:39 Procedure End 04/25/25 14:36 Procedure Start Time: 13:39 Procedure Stop Time: 14:36 Select all DRAINS/GRAFTS/IMPLANTS that apply: None Special Medications: Zosyn 3.375 g IV x 1 Estimated Blood Loss: < 10 cc Specimen collected: Yes Description of specimen(s) removed: Gallbladder Description of surgery: Indications: this is a 45 year-old female who developed abdominal pain/nausea/vomiting and on workup was found to have acute cholecystitis, normal white blood cell count, with a normal common bile duct. Laparoscopic cholecystectomy was elected?was given Zosyn 3.375 g IV every 8 hours for acute cholecystitis. Description procedure: The patient was placed on operating table in supine position. A timeout was completed verifying correct patient, procedure, site, position and special equipment prior to beginning procedure. General Anesthesia was induced. The abdomen was prepped and draped in usual sterile fashion. An incision was made in the natural skin line below the umbilicus. The fascia was elevated and incised. The peritoneum was elevated and incised. Entry into the peritoneum was confirmed visually and no bowel was noted in the vicinity of the incision. [place] trocar was placed. The abdomen was insufflated with carbon dioxide to a pressure of 12-15 mmHg. Patient tolerated insufflation well. The laparoscope was then inserted and abdomen inspected. No injuries from initial trocar placement were noted. Additional trochars were then inserted in the following locations 8 mm trocar left upper quadrant and 2 more 8 mm trochars in right lower quadrant and left lower quadrant. The abdomen was inspected no abnormalities were found. The table is placed in reverse Trendelenburg position with the right side up. Robot was docked. The adhesions between the gallbladder and omentum were taken down carefully. The dome of the gallbladder was grasped with atraumatic grasper passed through the lateral port and retracted over the dome of the liver. Infundibulum was then grasped with atraumatic grasper through the midclavicular port and retracted to the right lower quadrant. There is noted to be quite a bit of edema at the neck of the gallbladder as well as in the gallbladder fossa. This maneuver exposed Calot's triangle. The peritoneum overlying the gallbladder infundibulum was then incised and cystic duct and artery identified and circumferentially dissected. ICG was used to visualize the cystic duct. The cystic duct and artery were then doubly clipped and divided close to the gallbladder. The gallbladder then dissected from its peritoneal attachments by electrocautery. Hemostasis was checked and the gallbladder was removed using the endoscopic retrieval bag through the umbilical port. The gallbladder is passed off table as specimen. The gallbladder fossa was irrigated with saline and hemostasis obtained. There is no evidence of bleeding from the gallbladder fossa or cystic artery leakage of bile from the cystic duct stump. Robot was undocked. Secondary trochars removed under direct vision. No bleeding was noted the trocar sites. The laparoscope was withdrawn and umbilical trocar removed. The abdomen was allowed to collapse. The fascia of the 12 mm trocar was closed with a [id number] 0 Vicryl suture. The skin was closed with sutures of 4-0 Monocryl and Steri-Strips. The patient was extubated. The patient tolerated procedure well and was taken to the postanesthesia care unit in stable condition. Surgical Findings: See operative report Complications Complications: No
--- NOTE | 2025-04-25 14:42 | DCINST_ITS ---
Discharge Instructions Diet Discharge Diet: Light diet - advance as tolerated Activity Discharge Activity: May Not Drive (while taking narcotic pain medications.) May shower in (days): 1 Lifting Restrictions: no lifting >20 lbs x 2 wks, no strenuous exercise for 4 wks Dressing / Incision Call your doctor if your incision/area has: Continuous Slow Oozing, Sudden Increased Bleeding, Increased Pain/ Swelling, Increased Redness, Foul Smelling Discharge and Swelling at the incision site Call your doctor if you observe: Fever of 101 or Higher Remove Dressing in: 2 days Cleanse incision/area with: Soap & Water Additional Dressing/Incision Instructions:: Steri-Strips will fall off in 7 to 10 days, if they do not fall off okay to remove after 10 days. Follow Up Care Please Follow Up With: Rosalia Pugh MD When: Call the office for a follow-up appointment 2 weeks; after 5 PM and on the weekends call [phone] with any concerns. Test Results: Test results from this visit will be discussed in further detail at your follow- up appointment, if applicable. Discharge Plan Admission Admit Date/Time: 04/25/25 07:57 Attending Provider: Rosalia Pugh Primary Care Provider: Ryland Storm Discharge Orders/Prescriptions Prescriptions: New oxycodone 5 mg capsule 5 mg PO Q6H PRN (Reason: pain) 3 Days Qty: 10 0RF Continued Unisom (doxylamine) 25 mg tablet 25 mg PO QHS duloxetine 60 mg capsule,delayed release(DR/EC) 120 mg PO QDAY atenolol 50 mg tablet 50 mg PO DAILY cyclobenzaprine 10 mg tablet 10 mg PO Q8H PRN (Reason: muscle spasm) Referrals / Follow Up: Ryland Storm DO [Primary Care Provider, Family Practice] Disposition Disposition (needs filled in before D/C Order can be placed): Home, Self Care
[2025-04-25] MEDS: Ketorolac 30 MG/ML Syringe IV (14:48)
--- NOTE | 2025-04-25 15:15 | PCM.POST.ANE ---
Anesthesia: Postop Eval I Current Vital Signs Temperature: 98.1 F Pulse Rate: 102 Blood Pressure: 120/69 Respiratory Rate: 16 Pulse Ox: 98 Assessment Airway patent: Yes Spontaneous unlabored respirations: Yes nausea: No Vomiting: No Anesthesia Complication: No Fluid Hydration Crystalloid volume administer (ml): 1,100 Total IV fluid infused: 1,100 Progress Note Anesthesia document: Postop Eval 1 completed: Yes
--- NOTE | 2025-04-25 16:51 | POSTOPAN2_ITS ---
Anesthesia Postop Eval I Sum Postop Eval Completion status Anesthesia document: Postop Eval 1 completed: Yes Anesthesia Postop Eval I Summary Anesthesia Postop Eval I Summary: Anesthesia Postop Eval I: Assessment Summary Airway patent Yes 04/25/25 15:15 GRAIN ELEVATOR SUPERINTENDENT.[email or web address] Spontaneous unlabored Yes 04/25/25 15:15 GRAIN ELEVATOR SUPERINTENDENT.TNES respirations Mental status nausea No 04/25/25 15:15 GRAIN ELEVATOR SUPERINTENDENT.TNES Vomiting No 04/25/25 15:15 GRAIN ELEVATOR SUPERINTENDENT.TNES Anesthesia Postop Eval I: Fluid Summary Crystalloid volume administer 1,100 04/25/25 15:15 GRAIN ELEVATOR SUPERINTENDENT.TNES (ml) Colloids volume administered ( ml) Blood Product volume administered (ml) Total IV fluid infused 1,100 04/25/25 15:15 GRAIN ELEVATOR SUPERINTENDENT.TNES Anesthesia Postop Eval I: Summary Notes Anesthesia Complication No 04/25/25 15:15 GRAIN ELEVATOR SUPERINTENDENT.TNES Anesthesia Complication Comment: Post-operative progress note Anesthesia: Postop Eval II Evaluation Mental status: Awake Pain Level: 2 nausea: No Vomiting: No
--- NOTE | 2025-04-25 16:51 | PCM.POSTANE2 ---
Anesthesia Postop Eval I Sum Postop Eval Completion status Anesthesia document: Postop Eval 1 completed: Yes Anesthesia Postop Eval I Summary Anesthesia Postop Eval I Summary: Anesthesia Postop Eval I: Assessment Summary Airway patent Yes 04/25/25 15:15 OAKES MACHINE OPERATOR.[email or web address] Spontaneous unlabored Yes 04/25/25 15:15 OAKES MACHINE OPERATOR.TNES respirations Mental status nausea No 04/25/25 15:15 OAKES MACHINE OPERATOR.TNES Vomiting No 04/25/25 15:15 OAKES MACHINE OPERATOR.TNES Anesthesia Postop Eval I: Fluid Summary Crystalloid volume administer 1,100 04/25/25 15:15 OAKES MACHINE OPERATOR.TNES (ml) Colloids volume administered ( ml) Blood Product volume administered (ml) Total IV fluid infused 1,100 04/25/25 15:15 OAKES MACHINE OPERATOR.TNES Anesthesia Postop Eval I: Summary Notes Anesthesia Complication No 04/25/25 15:15 OAKES MACHINE OPERATOR.TNES Anesthesia Complication Comment: Post-operative progress note Anesthesia: Postop Eval II Evaluation Mental status: Awake Pain Level: 2 nausea: No Vomiting: No
== END 2025-04-25 14:45 | disposition home or self-care (01) ==
LOC: ED 08:01 → PCU 08:21
PROVIDERS: Admitting Provider Surgery; Emergency Provider Emergency Medicine; PCP Family Medicine; Visit Provider Surgery
PROC: 0FT44ZZ Resection of Gallbladder, Percutaneous Endoscopic Approach (ICD-10-PCS; CPT 47562; principal; 2025-04-25 12:10)
DX: K80.12 Calculus of gallbladder with acute and chronic cholecystitis without obstruction (principal); E78.00 Pure hypercholesterolemia, unspecified; K42.9 Umbilical hernia without obstruction or gangrene; Z79.899 Other long term (current) drug therapy
CPT/HCPCS: 47563; S2900; 00790; 74177; 76705; 80048; 80076; 81001; 83690; 85025; 87077; 87086; 87088; 87186; 88304; 93005; 96361; 96365; 96367; 96375; 96376; 99283; Q9967; A4216; J2405

== ENCOUNTER → 2025-04-29 | Outpatient (CLI) | payer BC, SELFPAY ==
--- NOTE | 2025-04-29 16:43 | BI_ITS ---
EXAM: SCRN MAMM (CAD)W/CLAUDIA BILAT DATE: 04/29/2025 CLINICAL HISTORY: F, Age 45 y/o , SCREENING Grandmother with breast cancer. TECHNIQUE: Procedure Code: [id number] Modality: MG Procedure: SCRN MAMM (CAD)W/CLAUDIA BILAT COMPARISON: Prior exam(s) dated May 02, 2024.. FINDINGS: TISSUE DENSITY: The breasts are extremely dense, which lowers the sensitivity of mammography. Bilateral Breast Mammographic Findings: No significant masses, calcifications or other abnormalities are identified. Stable small benign-appearing bilateral axillary lymph nodes. No suspicious masses, areas of developing architectural distortion, or suspicious calcifications. There has been no significant interval change. BI/SCRN MAMM (CAD)W/CLAUDIA BILAT IMPRESSION: Stable bilateral screening mammogram. OVERALL FINAL ASSESSMENT BI-RADS 2: BENIGN RECOMMENDATION: Routine annual follow-up in 1 Year Additional Recommendation none A letter with findings and recommendations will be mailed to the patient. Reading Location: [facility]
== END | disposition home or self-care (01) ==
LOC: OPBI 04-30 08:10
PROVIDERS: PCP Family Medicine; Referring Provider Family Medicine; Visit Provider Family Medicine
DX: Z12.31 Encounter for screening mammogram for malignant neoplasm of breast (principal)
CPT/HCPCS: 77063; 77067